=== PATIENT | female | born 1995 | race African-American/Black ===

== ENCOUNTER → 2024-05-09 14:59 | Outpatient (CLI) | payer OTHER, SELFPAY ==
[2024-05-09 16:54] LABS: Urine Chlamydia NOT DETECTED; Urine N gonorrhoeae NOT DETECTED
== END ==
PROVIDERS: Visit Provider Obstetrics & Gynecology
DX: Z34.91 Encounter for supervision of normal pregnancy, unspecified, first trimester (principal)
CPT/HCPCS: 87491; 87591

== ENCOUNTER 2024-05-21 08:53 | Emergency (ER) | payer OTHER, SELFPAY ==
[2024-05-21] VITALS (8 sets, daily range): BP systolic 131–139; BP diastolic 74; PULSE 86–98; RESP 16; TEMP 36.2; O2SAT 93–100; BMI 37.0
[2024-05-21] MEDS: SODIUM CHLORIDE 0.9% 1,000 ML 2000 ML IV (09:24)
[2024-05-21] MEDS: ONDANSETRON 4 MG/2 ML INJ IV (09:25)
--- NOTE | 2024-05-21 09:30 | ED_ITS ---
HPI - Nausea/Vomiting/Diarrhea General Chief complaint: Nausea/Vomiting/Diarrhea Stated complaint: dehydrated, vomiting, constipation Time Seen by Provider: 05/21/24 09:07 History of Present Illness HPI Narrative: Otherwise healthy 29-year-old currently 9 weeks presents with nausea and vomiting . Over the last 24 hours has barely been able to keep any foods down at all. Did not have such problems with her 1st . She does have ondansetron at home and did not find it particularly helpful. No fevers, cough, chills. No vaginal discharge or bleeding. She is noting some constipation but is taking a stool softener Related Data Home Medications Medication Instructions Recorded Confirmed vit no.95-ferrous 1 tab PO DAILY 05/06/24 05/09/24 fumarate 28 mg-folic acid 800 mcg tablet ( Multivitamins) pyridoxine (vitamin B6) 50 mg 25 mg PO TID 05/06/24 05/09/24 tablet Previous Rx's Medication Instructions Recorded ondansetron 4 mg disintegrating 4 mg PO Q6H PRN nausea and 05/08/24 tablet vomiting in #30 tabs metoclopramide HCl 10 mg tablet 10 mg PO Q6H PRN nausea and 05/21/24 vomiting #20 tabs Allergies Allergy/AdvReac Type Severity Reaction Status Date / Time apple Allergy Intermediate Hives Verified 05/09/24 11:34 Review of Systems Review of Systems Narrative: Pertinent positive and negative findings as per HPI Patient History Medical History (Updated 05/21/24 @ 09:44 by Gissel Ordaz MD) Concussion (~1997) Incompetent cervix Gestational hypertension Surgical History (Updated 05/06/24 @ 14:58 by Lien Platt RN) H/O tooth extraction Family History (Updated 05/06/24 @ 15:40 by Lien Platt RN) Father Hypertension Mother Hvjve-Snfzwbsdt-Jkdlu (WPW) syndrome SVT (supraventricular tachycardia) Twin delivered Grandmother Cervical cancer Grandmother Thyroid cancer Social History marital status: number of children: 1 household members: spouse and children lives independently: Yes caregiver/support person: Yes housing: house pets and animals: Yes (small dogs, gecko) education level: college (some college) occupational status: employed (active duty [employer]) current occupational exposures/hazards: No (not since becoming ) special carlo needs: No travel history: recent ([place]ine, [place], domestic) seatbelt use: always helmet use: Yes water heater temp set < 120 deg: Yes working smoke detector in home: Yes fire extinguisher in home: Yes carbon monox detector in home: Yes firearms in home: Yes firearms unloaded and locked: Yes do you feel safe at home: Yes Smoking Status: Never smoker second hand exposure: No alcohol intake: former (~3 drinks/week when not ) substance use type: does not use during the past year weight has: decreased > 10 lbs well-balanced diet: about half the time daily servings fruits/ve-4 caffeine: Yes (occasional cup coffee ) Type(s) of exercise: walking, aerobic and bicycling Smoking Status: Never smoker Substance Use Type: does not use Exam Initial Vital Signs Initial Vital Signs: Vital Signs Temperature 97.1 F L 05/21/24 09:05 Pulse Rate 97 H 05/21/24 09:05 Respiratory Rate 16 05/21/24 09:05 Blood Pressure 139/74 05/21/24 09:05 Pulse Oximetry 100 05/21/24 09:05 Oxygen Delivery Method Room Air 05/21/24 09:05 General: Alert appropriate in no acute distress Respiratory: Able to speak in full sentences, no obvious respiratory distress Skin: No obvious rashes, warm and dry Neurologic: Grossly intact no obvious asymmetries or abnormalities Psych: appropriate insight and affect, cooperative Course Orders Ordered: ED Orders 05/21/24 09:10 Complete Blood Count AUTO DIFF Stat Comprehensive Metabolic Panel Stat Free T4, Direct Thyroxine Stat TSH w/ Reflex to FT4 Stat Discontinued Medications Sodium Chloride (Normal Saline 0.9%) 1,000 mls @ 2,000 mls/hr IV BOLUS ONE Stop: 05/21/24 09:46 Last Admin: 05/21/24 09:24 Dose: 2,000 mls/hr Documented By: SHIRA Ondansetron HCl (Ondansetron 4 Mg/2 Ml Inj) 4 mg IV NOW ONE Stop: 05/21/24 09:18 Last Admin: 05/21/24 09:25 Dose: 4 mg Documented By: SHIRA Vital Signs Vital signs: Vital Signs - 8 hr 05/21/24 09:05 Temperature 97.1 F L Pulse Rate 97 H Respiratory Rate 16 Blood Pressure 139/74 Pulse Oximetry 100 Oxygen Delivery Method Room Air MDM - Nausea/Vomiting/Diarrhea Lab Data 05/21/24 09:10 05/21/24 09:10 Labs: Lab Results 05/21/24 Range/Units 09:10 WBC 4.8 (4.5-11.0) X10^3/uL RBC 4.33 (4.0-5.2) X10^6/uL Hgb 12.2 (12.0-16.0) g/dL Hct 36.4 (36-46) % MCV 84.0 (80-100) fL MCH 28.3 (26-34) PG MCHC 33.6 (30-36) % RDW 13.8 (11.6-14.8) % Plt Count 347 (150-400) X10^3/uL Neut % (Auto) 62.4 (50-75) % Lymph % (Auto) 19.9 L (25-40) % Isabela % (Auto) 13.3 (3-14) % Eos % (Auto) 3.9 (2-4) % Baso % (Auto) 0.5 (0-2) % Neut # (Auto) 3000 (3047-0836) /uL Lymph # (Auto) 1000 L (3205-8945) /uL Isabela # (Auto) 600 (0-900) /uL Eos # (Auto) 200 (0-450) /uL Baso # (Auto) 0 (0-100) /uL Sodium 135 L (137-145) mmol/L Potassium 3.9 (3.4-5.1) mmol/L Chloride 104 (98-107) mmol/L Carbon Dioxide 22 (22-32) mmol/L BUN 3 L (7-17) mg/dL Creatinine 0.54 (0.52-1.04) mg/dL Estimated GFR > 60 (>60) mL/min BUN/Creatinine Ratio 5.6 L (6-22) Glucose 94 (70-100) mg/dL Calcium 8.7 (8.4-10.2) mg/dL Total Bilirubin 0.4 (0.2-1.3) mg/dL AST 22 (14-36) IU/L ALT 17 (<35) IU/L Alkaline Phosphatase 69 (38-126) U/L Total Protein 7.2 (6.3-8.2) g/dL Albumin 4.0 (3.5-5.0) g/dL Globulin 3.2 (1.7-4.1) g/dL Albumin/Globulin Ratio 1.3 (1.0-2.8) TSH 0.04 L (0.47-4.68) uIU/mL MDM Narrative Medical decision making narrative: CC: Nausea early Complicating co-morbidities: Data collected from: patient Medical records reviewed: Patient has had an ultrasound with this to confirm intrauterine Braden placement Differential considered: Nausea and vomiting of , viral syndrome Exam documented above, pertinent findings include: No signs of severe dehydration. heart rate is appropriate Lab Test results independently reviewed as above. Pertinent findings: CBC is unremarkable Metabolic panel is reassuring TSH is suppressed at 0.04 Free T4 is appropriate at 1.33 Imaging studies independently reviewed: Bedside ultrasound confirms intrauterine fetus, heart rate 150-160. No obvious subchorionic hemorrhage Treatments: 2 L of fluid, IV Zofran Re-evaluations: Findings reviewed with the patient, she is tolerating juice. She is safe for discharge Discussion: 29-year-old woman with nausea and vomiting of early . She is given 2 L of fluids, is able to keep some liquids down. We will give her a prescription for metoclopramide to see if this is effective told her that she can combine it with ondansetron. She is well aware of recommendations for small volumes of liquids throughout the day including small volumes of food. She has a follow up with her OBGYN scheduled on May 23. There was no indication for additional workup or hospitalization at this time she is safe for discharge Discharge Plan Departure Patient Disposition: Home Clinical Impression: Vomiting of Instructions: DI for -- Discomforts and Remedies Activity Restrictions/Additional Instructions: Thank you for coming in today The bedside ultrasound we did in the emergency department shows a happy fetus grown nicely. You were given 2 L of fluid help with your dehydration. You are given ondansetron through your IV. Unfortunately, the symptoms you are experiencing are common with early . I am not seeing any signs of additional complications or infection I have given you a prescription for Reglan, this is a different type of nausea medicine that can be used in as well. You can combine Reglan and Zofran throughout the day. This prescription was electronically transmitted to [facility] in [place] Please make sure that you are trying to drink small amounts of fluids throughout the day rather than large volumes every couple of hours. Small amounts of food can also make it a bit easier to get more calories in without vomiting quite so much Constipation at this stage is very common both because you are not eating, you do not feel well and your high progesterone levels. It is okay to use dose or 2 of milk of magnesia and do make sure that you are continuing your stool softener Please keep your appointment with your OBGYN on Sunday. If you find Prescriptions: New metoclopramide HCl 10 mg tablet 10 mg PO Q6H PRN (Reason: nausea and vomiting) Qty: 20 0RF No Action ondansetron 4 mg tablet,disintegrating 4 mg PO Q6H PRN (Reason: nausea and vomiting in ) Qty: 30 1RF pyridoxine (vitamin B6) 50 mg tablet 25 mg PO TID PNV cmb#95-ferrous fumarate-FA [ Multivitamins] 28 mg iron- 800 mcg tablet 1 tab PO DAILY Referrals: Rik Penny [Primary Care Provider] - Stand Alone Forms: Patient Portal/API
[2024-05-21 09:31] LABS: Add Manual Diff / Slide Review NO; Basophils Absolute Auto 0 /uL (0-100); Basophils Percent Auto 0.5 % (0-2); Eosinophils Absolute Auto 200 /uL (0-450); Eosinophils Percent Auto 3.9 % (2-4); Hematocrit 36.4 % (36-46); Hemoglobin 12.2 g/dL (12.0-16.0); Lymphocytes Absolute Auto 1000 /uL (1100-4500); Lymphocytes Percent Auto 19.9 % (25-40); Mean Corpuscular HGB Conc 33.6 % (30-36); Mean Corpuscular Hemoglobin 28.3 PG (26-34); Monocytes Absolute Auto 600 /uL (0-900); Monocytes Percent Auto 13.3 % (3-14); Neutrophils Absolute Auto 3000 /uL (1500-7000); Neutrophils Percent Auto 62.4 % (50-75); Platelet Count 347 X10^3/uL (150-400); Red Blood Cell Count 4.33 X10^6/uL (4.0-5.2); Red Cell Distribution Width 13.8 % (11.6-14.8); White Blood Cell Count 4.8 X10^3/uL (4.5-11.0)
[2024-05-21 09:38] LABS: Alanine Aminotransferase 17 IU/L (<35); Albumin Globulin Ratio 1.3 (1.0-2.8); Alkaline Phosphatase 69 U/L (38-126); Aspartate Aminotransferase 22 IU/L (14-36); BUN Creatinine Ratio 5.6 (6-22); Bilirubin Total 0.4 mg/dL (0.2-1.3); Blood Urea Nitrogen 3 mg/dL (7-17); Calcium 8.7 mg/dL (8.4-10.2); Carbon Dioxide 22 mmol/L (22-32); Chloride 104 mmol/L (98-107); Estimated Glomerular Filt Rate > 60 mL/min (>60); Globulin 3.2 g/dL (1.7-4.1); Glucose 94 mg/dL (70-100); HEMOLYSIS < 15 (0-50); Potassium 3.9 mmol/L (3.4-5.1); Sodium 135 mmol/L (137-145); Total Protein 7.2 g/dL (6.3-8.2)
[2024-05-21 10:20] LABS: TSH w/ Reflex to FT4 0.04 uIU/mL (0.47-4.68)
[2024-05-21] MEDS: SODIUM CHLORIDE 0.9% 1,000 ML 1000 ML IV (10:32)
[2024-05-21 10:45] LABS: Free T4, Direct Thyroxine 1.33 ng/dL (0.78-2.19)
== END 2024-05-21 11:54 | disposition home or self-care (01) ==
PROVIDERS: Emergency Provider Emergency Medicine
DX: O21.9 Vomiting of pregnancy, unspecified (principal)
CPT/HCPCS: 80053; 84439; 84443; 85025; 96361; 96374; 99283; 99284; J2405

== ENCOUNTER → 2024-06-06 14:08 | Outpatient (CLI) | payer OTHER, SELFPAY ==
[2024-06-06 15:38] LABS: Add Manual Diff / Slide Review NO; Basophils Absolute Auto 0 /uL (0-100); Basophils Percent Auto 0.3 % (0-2); Eosinophils Absolute Auto 200 /uL (0-450); Eosinophils Percent Auto 2.7 % (2-4); Hematocrit 34.2 % (36-46); Hemoglobin 11.4 g/dL (12.0-16.0); Lymphocytes Absolute Auto 2500 /uL (1100-4500); Lymphocytes Percent Auto 27.2 % (25-40); Mean Corpuscular HGB Conc 33.3 % (30-36); Mean Corpuscular Volume 84.1 fL (80-100); Monocytes Absolute Auto 900 /uL (0-900); Monocytes Percent Auto 10.3 % (3-14); Neutrophils Absolute Auto 5400 /uL (1500-7000); Neutrophils Percent Auto 59.5 % (50-75); Platelet Count 358 X10^3/uL (150-400); Red Blood Cell Count 4.07 X10^6/uL (4.0-5.2); Red Cell Distribution Width 13.6 % (11.6-14.8); White Blood Cell Count 9.1 X10^3/uL (4.5-11.0)
[2024-06-06 17:08] LABS: Alanine Aminotransferase 13 IU/L (<35); Aspartate Aminotransferase 18 IU/L (14-36); BUN Creatinine Ratio 16.7 (6-22); Blood Urea Nitrogen 9 mg/dL (7-17); Estimated Glomerular Filt Rate > 60 mL/min (>60); Uric Acid 2.3 mg/dL (2.5-6.2)
[2024-06-06 18:29] LABS: Hepatitis B Surface Antigen NEGATIVE s/c (NEGATIVE); Rubella Antibody IgG 25.2 IU/mL (>15)
[2024-06-06 18:30] LABS: HIV 1 & 2 Ab/Ag 4th Gen Combo NEGATIVE (NEGATIVE); Hep C Virus Ab w/Reflex Quant NEGATIVE s/c (NEGATIVE)
[2024-06-08 11:08] LABS: Varicella IgG Antibody 408 index (Immune >165)
== END ==
PROVIDERS: Referring Provider Obstetrics & Gynecology; Visit Provider Obstetrics & Gynecology
DX: O09.299 Supervision of pregnancy with other poor reproductive or obstetric history, unspecified trimester (principal)
CPT/HCPCS: 36415; 80055; 82565; 84450; 84460; 84520; 84550; 86787; 86803; 86850; 86900; 86901; 87389

== ENCOUNTER → 2024-06-10 10:00 | Outpatient (CLI) | payer OTHER, SELFPAY ==
[2024-06-10 11:15] LABS: Natera Collection Specimen Collected
== END ==
LOC: LAB 10:01
PROVIDERS: Referring Provider Obstetrics & Gynecology; Visit Provider Obstetrics & Gynecology
DX: O09.299 Supervision of pregnancy with other poor reproductive or obstetric history, unspecified trimester (principal); Z3A.11 11 weeks gestation of pregnancy
CPT/HCPCS: 36415; 87086

== ENCOUNTER 2024-06-16 06:39 | Day surgery (SDC) | payer OTHER, SELFPAY ==
[2024-06-12 12:21] VITALS: BMI 36.5
[2024-06-16] VITALS (7 sets, daily range): BP systolic 82–129; BP diastolic 50–75; PULSE 66–110; RESP 10–18; TEMP 36.2–36.6; O2SAT 98–100; BMI 36.5
--- NOTE | 2024-06-16 07:24 | SUR.OPER ---
Lithotomy on padded OR bed, head on pillow, arms secured on padded arm boards at <90 degrees abduction. Legs secured in padded yellow fins stirrups.
[2024-06-16] MEDS: LACTATED RINGERS 1,000 ML 21 ML IV (07:27)
[2024-06-16] MEDS: ACETAMINOPHEN 325 MG TABLET 650 MG PO (07:38)
--- NOTE | 2024-06-16 07:47 | PM.GYNHP.1 ---
History of Present Illness History of Present Illness Reason for admission: other (Incompetent cervix) Narrative: Niharika Cooper is a 29 year old female at 13 weeks gestation who presents for a cervical cerclage due to incompetent cervix. [facility] Medical History (Updated 06/05/24 @ 00:00 by ) Allergies Shoulder pain (~2017) Chlamydia (~2015) Eczema Concussion (~1997) Incompetent cervix Gestational hypertension Surgical History (Updated 05/24/24 @ 20:34 by Jamilah Johnson) Anesthesia History of cervical cerclage (~08/2021) H/O tooth extraction (~2012) Family History (Updated 05/24/24 @ 20:38 by Jamilah Johnson) Father Hypertension Mother Datju-Ejfulxddy-Azwfk (WPW) syndrome SVT (supraventricular tachycardia) Twin delivered Grandmother Cervical cancer Grandmother Thyroid cancer Grandfather AIDS Grandfather Multiple sclerosis Social History marital status: number of children: 1 household members: spouse and children lives independently: Yes caregiver/support person: Yes housing: house pets and animals: Yes (small dogs, gecko) education level: college (some college) occupational status: employed (active duty [employer]) current occupational exposures/hazards: No (not since becoming ) special carlo needs: No travel history: recent ([place], [place], domestic) seatbelt use: always helmet use: Yes water heater temp set < 120 deg: Yes working smoke detector in home: Yes fire extinguisher in home: Yes carbon monox detector in home: Yes firearms in home: Yes firearms unloaded and locked: Yes do you feel safe at home: Yes Smoking Status: Never smoker second hand exposure: No alcohol intake: former substance use type: does not use during the past year weight has: decreased > 10 lbs well-balanced diet: about half the time daily servings fruits/ve-4 caffeine: Yes (occasional cup coffee ) Type(s) of exercise: walking, aerobic and bicycling Meds Home Medications and Allergies Home Medications Medication Instructions Recorded Confirmed Type vit no.95-ferrous 1 tab PO DAILY 05/06/24 06/16/24 History fumarate 28 mg-folic acid 800 mcg tablet ( Multivitamins) metoclopramide HCl 10 mg tablet 10 mg PO Q6H PRN nausea and 05/21/24 06/16/24 Rx vomiting #20 tabs ondansetron 4 mg disintegrating 4 mg PO Q6H PRN nausea and 05/27/24 06/16/24 Rx tablet vomiting in #30 tabs Allergies Allergy/AdvReac Type Severity Reaction Status Date / Time apple Allergy Intermediate Hives Verified 06/04/24 11:28 Exam Vital Signs (past 8 hours): - 06/16/24 07:08 Temperature 97.2 F L Pulse Rate 96 H Respiratory Rate 17 Blood Pressure 120/73 Pulse Oximetry 100 Oxygen Delivery Method Room Air Oxygen Delivery Method Room Air Narrative Exam Narrative: HEENT: No thyromegaly, no anterior cervical or supraclavicular lymphadenopathy. Lungs:Clear to auscultation bilaterally, no wheezes. Cardiovascular: Regular rate and rhythm, no murmurs, rubs, or gallops. Abdomen: No scars. No hepatosplenomegaly. No masses palpable. External genitalia: Normal Vagina: Normal Cervix: Normal Bimanual exam: 13 Week size gravid uterus. Mobile. Ext: No edema Assessment & Plan Assessment & Plan narrative: Assessment: 29-year-old 2 para 1 at 13 weeks gestation with an incompetent cervix Plan: Dawson cervical cerclage The risks, benefits, and alternatives to the procedure were explained to the patient. The risks including bleeding, infection, and rupture of membranes. She understands these risks and agrees to proceed. A full par Q was held and consent form was signed. Time-Based Coding :: [TOTAL MINUTES] spent with patient and on the chart (including review of chart, obtaining history, exam, reviewing outside data, placing orders, documenting exam and treatment plan, and counseling patient) on [DATE].
--- NOTE | 2024-06-16 07:49 | PM.PREOP ---
Pre-operative Note Interval Note History & Physical reviewed/Exam performed by Physician: Yes Changes to H&P: No H&P completed within 30 days and has changed as indicated here:: 06/16/24
[2024-06-16] MEDS: CEFAZOLIN 2 GM/100 ML PREMIX 100 ML IV (08:04)
[2024-06-16] MEDS: IBUPROFEN 400 MG TABLET 800 MG PO (08:25)
--- NOTE | 2024-06-16 08:45 | PM.GYNOP.1 ---
Operative Date/Time/Diagnoses Date of procedure: 06/16/24 Time of procedure: 08:45 Pre-op diagnosis: Incompetent cervix Post-op diagnosis: same Procedure & Clinicians Procedure: Procedures Operation Date: 06/16/24 07:45 Actual Procedure Side Surgeon sugey Pérezge Thalia Rebolledo MD Indications: 29-year-old 2 para 1 at 13 weeks gestation with an incompetent cervix. Patient previously had a salvage cerclage done with her first . She did carry to 36 weeks' gestation. She presents today for a prophylactic Dawson cervical cerclage. Surgeon: Thalia Rebolledo Anesthesia Type: MAC +/- Operative Notes Findings: 4 cm long cervix Internal os closed External os fingertip open Closure Type: not applicable Specimen(s): none Applied: catheter (In/out with red rubber catheter) Estimated blood loss (mL): 5 Blood products transfused: none Procedure in detail: After informed consent was obtained, the patient was taken to the operating room where she was placed in the dorsal supine position. After adequate IV sedation, the patient was placed in the dorsal lithotomy position, and prepped and draped in the usual sterile fashion. A time-out was performed. A weighted speculum was placed into the vagina. The patient was placed in deep Trendelenburg. Ring forceps were placed on the anterior and posterior lips of the cervix. The cervix was palpated and was 4 cm long. At the 4 cm prabhakar the Mersilene blunt needle was placed at the 12 o'clock position and out at 10. In at 8 and out at 6. In 5 in out at 4. In at 2 and out at 12. The Mersilene was tightened down. Six knots were tied and then the Mersilene was trimmed. The ring forceps were removed from the cervix. The bivalve speculum was removed from the vagina. 800 mg of ibuprofen were placed rectally. Sponge, lap, and instrument counts were correct x2. The patient tolerated the procedure well, and was taken to PACU in stable condition. Complications: none Post-operative Condition: stable Disposition: PACU Plan for aftercare: Home after recovery
[2024-06-16] MEDS: HYDROMORPHONE 1 MG INJ IV ×2 (08:47→08:53)
[2024-06-16] MEDS: OXYCODONE IR 5 MG TABLET PO ×2 (08:49→09:29)
[2024-06-16] MEDS: MORPHINE 10 MG/ML INJ IV (09:01)
== END 2024-06-16 09:51 | disposition home or self-care (01) ==
PROVIDERS: Referring Provider Obstetrics & Gynecology; Visit Provider Obstetrics & Gynecology
PROC: 0UVC7ZZ Restriction of Cervix, Via Natural or Artificial Opening (ICD-10-PCS; CPT 57700; principal; 2024-06-16 07:45)
DX: N88.3 Incompetence of cervix uteri (principal); Z3A.13 13 weeks gestation of pregnancy
CPT/HCPCS: 59320; J0330; J0690; J1170; J2270; J2405; J2704

== ENCOUNTER 2024-07-20 21:30 | Emergency (ER) | payer OTHER, SELFPAY ==
[2024-07-20 21:33] VITALS: BP 143/64; PULSE 92; RESP 16; TEMP 36.4; O2SAT 100; BMI 51.2
--- NOTE | 2024-07-20 22:01 | DI.US.S_ITS ---
PROCEDURE: US OB LIMITED INDICATIONS: 18 weeks gest, vag bleeding OUTSIDE/PRIOR DATING DATA: Last menstrual period (LMP): March 17, 2024. LMP-based estimated date of delivery (SILVESTRE): December 22, 2024. First dating scan (date and location): May 09, 2024. Estimated date of delivery (SILVESTRE) from first dating scan: December 22, 2024. TECHNIQUE: Real-time scanning was performed of the fetus, with image documentation and biometric measurements. Endovaginal scanning: Performed for evaluation of the cervix COMPARISON: None. FINDINGS: General: A single living intrauterine gestation is present. Presentation: Vertex. Placenta: Placental position is anterior , without previa. Amniotic fluid index: 14.2 cm, normal range is 5-24 cm. Single deepest vertical pocket is 4.7 cm. heart rate: 133 beats per minute. Maternal cervical canal: 4.7 cm long. Normal lower limit is 2.5 cm. A cerclage wire is visualized. biometrics: Biparietal diameter: 4.2 cm, 18 weeks and 5 days Head circumference: 14.9 cm, 18 weeks and 0 days Abdominal circumference: 12.1 cm, 17 weeks and 5 days Femur length: 2.6 cm, 17 weeks and 6 days Clinically estimated gestational age: 17 weeks and 6 days Composite gestational age from present scan: 18 weeks and 1 day Estimated weight and percentile: 212 g, 43rd percentile for gestational age Other: Not applicable. IMPRESSION: Single living intrauterine gestation with estimated sonographic gestational age of approximately 18 weeks and 1 day which correlates with estimated gestational age by last menstrual period. Cervical length measures 4.7 cm. Placental edge to the internal cervical os measures approximately 5.3 cm. Cerclage visualized in the cervix. Left anterior uterine fibroid measuring 6.5 x 4.4 x 4.6 cm. We strive to produce accurate, complete, and clear reports of imaging services. To assist us in improving patient care, this report was composed using standard report templates and voice recognition software. Therefore, it may contain abnormal punctuation, insertions and/or omissions. Occasional wrong-word or sound-alike substitutions may occur. Though we review the report and make efforts to correct it, we do recommend that the report be read carefully in proper context to recognize any text inaccuracies. Dictated by: Van Cuba M.D. on 07/21/2024 at 0:09 Approved by: Van Cuba M.D. on 07/21/2024 at 0:15
--- NOTE | 2024-07-20 22:36 | ED.GENADULT ---
HPI - General Adult General Chief complaint: Vaginal Bleeding Stated complaint: spotting blood 17 1/2 weeks preg Time Seen by Provider: 07/20/24 22:00 Source: patient Mode of arrival: Ambulatory History of Present Illness HPI narrative: 29-year-old female current she reports 18 weeks' gestation, , prior with cervical incompetence, this had cerclage placed by Dr. Rebolledo at 13 weeks' gestation, now noticed slight blood on wiping vaginal, no rectal bleeding or stooling. No cramping, no leaking of fluid. No fevers or chills. No dysuria or frequency of urination. No trauma. Reports she has been compliant with recommended pelvic rest, no intercourse or other intravaginal trauma. She denies use of blood thinner medications. No vaginal discharge. Related Data Home Medications Medication Instructions Recorded Confirmed vit no.95-ferrous 1 tab PO DAILY 05/06/24 07/11/24 fumarate 28 mg-folic acid 800 mcg tablet ( Multivitamins) Previous Rx's Medication Instructions Recorded metoclopramide HCl 10 mg tablet 10 mg PO Q6H PRN nausea and 05/21/24 vomiting #20 tabs ondansetron 4 mg disintegrating 4 mg PO Q6H PRN nausea and 06/19/24 tablet vomiting in #30 tabs Allergies Allergy/AdvReac Type Severity Reaction Status Date / Time apple Allergy Intermediate Hives Verified 07/11/24 13:51 Review of Systems Review of Systems Narrative: see HPI Patient History Medical History (Updated 07/21/24 @ 00:33 by Vickey Kinney MD) Allergies Shoulder pain (~2017) Chlamydia (~2015) Eczema Concussion (~1997) Incompetent cervix Gestational hypertension Surgical History (Updated 07/21/24 @ 00:33 by Vickey Kinney MD) Anesthesia History of cervical cerclage (~08/2021) H/O tooth extraction (~2012) Family History (Updated 05/24/24 @ 20:38 by Jamilah Johnson) Father Hypertension Mother Ruydy-Hmhbxuflf-Unolo (WPW) syndrome SVT (supraventricular tachycardia) Twin delivered Grandmother Cervical cancer Grandmother Thyroid cancer Grandfather AIDS Grandfather Multiple sclerosis Social History marital status: number of children: 1 household members: spouse and children lives independently: Yes caregiver/support person: Yes housing: house pets and animals: Yes (small dogs, gecko) education level: college (some college) occupational status: employed (active duty [employer]) current occupational exposures/hazards: No (not since becoming ) special carlo needs: No travel history: recent ([place], [place], domestic) seatbelt use: always helmet use: Yes water heater temp set < 120 deg: Yes working smoke detector in home: Yes fire extinguisher in home: Yes carbon monox detector in home: Yes firearms in home: Yes firearms unloaded and locked: Yes do you feel safe at home: Yes Smoking Status: Never smoker second hand exposure: No alcohol intake: former substance use type: does not use during the past year weight has: decreased > 10 lbs well-balanced diet: about half the time daily servings fruits/ve-4 caffeine: Yes (occasional cup coffee ) Type(s) of exercise: walking, aerobic and bicycling Smoking Status: Never smoker Substance Use Type: does not use Exam Narrative Exam Narrative: GENERAL: Well-developed patient, in mild distress. HEAD: Atraumatic. Normocephalic. EYES: Pupils equal round and reactive. Extraocular motions intact. No scleral icterus. No injection or drainage. ENT: Nose without bleeding, purulent drainage. Throat without erythema, tonsillar hypertrophy or exudate. Airway patent. NECK: Trachea midline. Non tender CARDIOVASCULAR: Regular rate and rhythm without murmurs, gallops, or rubs. RESPIRATORY: Clear to auscultation. Breath sounds equal bilaterally. No wheezes, rales, or rhonchi. GASTROINTESTINAL: Abdomen soft, non-tender, nondistended. Fundus palpable 2 fingers below the umbilicus, consistent with reported gestational age 18 weeks. No tenderness ventral abdomen. EXTREMITIES: No edema or joint tenderness. BACK: Nontender without deformity or crepitance. No flank tenderness. NEURO: AOx3. Motor functions grossly nonfocal SKIN: No rash or erythema of visible areas Initial Vital Signs Initial Vital Signs: Vital Signs Temperature 97.5 F L 07/20/24 21:33 Pulse Rate 92 H 07/20/24 21:33 Respiratory Rate 16 07/20/24 21:33 Blood Pressure 143/64 H 07/20/24 21:33 Pulse Oximetry 100 07/20/24 21:33 Oxygen Delivery Method Room Air 07/20/24 21:33 Course Orders Ordered: ED Orders 07/20/24 22:01 US OB limited Stat 07/20/24 22:15 Hemoglobin and Hematocrit Stat Test [HCG Quantitative /Beta subunit] Stat Vital Signs Vital signs: Vital Signs - 8 hr 07/20/24 21:33 07/21/24 00:40 Temperature 97.5 F L Pulse Rate 92 H 74 Respiratory Rate 16 18 Blood Pressure 143/64 H 127/67 Pulse Oximetry 100 99 Oxygen Delivery Method Room Air Room Air Medical Decision Making Lab Data Lab results reviewed: Yes I reviewed the patient's lab results. Lab results narrative: Hemoglobin 12.7, urine dip negative. Blood type O positive noted. Serum hCG 98495. 07/20/24 22:15 Labs: Lab Results 07/20/24 Range/Units 22:15 Hgb 12.7 (12.0-16.0) g/dL Hct 38.0 (36-46) % HCG, Quant 74525 mIU/mL Urine Dip Bedside Urine Glucose Negative Bedside Urine Bilirubin - Negative Bedside Urine Ketone - Negative Urine Specific [place] 1.015 Bedside Urine Occult Blood - Negative Bedside Urine pH 6 Bedside Urine Protein - Negative Bedside Urine Urobilinogen - Negative Bedside Urine Nitrite - Negative Bedside Urine Leukocytes + 70 Esterase Point of care testing: Urine Dip Bedside Urine Glucose Negative Bedside Urine Bilirubin - Negative Bedside Urine Ketone - Negative Urine Specific [place] 1.015 Bedside Urine Occult Blood - Negative Bedside Urine pH 6 Bedside Urine Protein - Negative Bedside Urine Urobilinogen - Negative Bedside Urine Nitrite - Negative Bedside Urine Leukocytes + 70 Esterase Imaging Data Pelvic obstetric 2nd trimester ultrasound: Radiologist's Impression: [place] [address] Ultrasound Report Signed Patient: Niharika Cooper MR#: [id number] : 1995 Acct:[id number] Age/Sex: 29 / F Date of Service: 07/20/24 Loc: ED Accession Number: [id number] Procedure: US OB limited Ordering Provider: Vickey Kinney MD PROCEDURE: US OB LIMITED INDICATIONS: 18 weeks gest, vag bleeding OUTSIDE/PRIOR DATING DATA: Last menstrual period (LMP): March 17, 2024. LMP-based estimated date of delivery (SILVESTRE): December 22, 2024. First dating scan (date and location): May 09, 2024. Estimated date of delivery (SILVESTRE) from first dating scan: December 22, 2024. TECHNIQUE: Real-time scanning was performed of the fetus, with image documentation and biometric measurements. Endovaginal scanning: Performed for evaluation of the cervix COMPARISON: None. FINDINGS: General: A single living intrauterine gestation is present. Presentation: Vertex. Placenta: Placental position is anterior , without previa. Amniotic fluid index: 14.2 cm, normal range is 5-24 cm. Single deepest vertical pocket is 4.7 cm. heart rate: 133 beats per minute. Maternal cervical canal: 4.7 cm long. Normal lower limit is 2.5 cm. A cerclage wire is visualized. biometrics: Biparietal diameter: 4.2 cm, 18 weeks and 5 days Head circumference: 14.9 cm, 18 weeks and 0 days Abdominal circumference: 12.1 cm, 17 weeks and 5 days Femur length: 2.6 cm, 17 weeks and 6 days Clinically estimated gestational age: 17 weeks and 6 days Composite gestational age from present scan: 18 weeks and 1 day Estimated weight and percentile: 212 g, 43rd percentile for gestational age Other: Not applicable. IMPRESSION: Single living intrauterine gestation with estimated sonographic gestational age of approximately 18 weeks and 1 day which correlates with estimated gestational age by last menstrual period. Cervical length measures 4.7 cm. Placental edge to the internal cervical os measures approximately 5.3 cm. Cerclage visualized in the cervix. Left anterior uterine fibroid measuring 6.5 x 4.4 x 4.6 cm. We strive to produce accurate, complete, and clear reports of imaging services. To assist us in improving patient care, this report was composed using standard report templates and voice recognition software. Therefore, it may contain abnormal punctuation, insertions and/or omissions. Occasional wrong-word or sound-alike substitutions may occur. Though we review the report and make efforts to correct it, we do recommend that the report be read carefully in proper context to recognize any text inaccuracies. Dictated by: Van Cuba M.D. on 07/21/2024 at 0:09 Approved by: Van Cuba M.D. on 07/21/2024 at 0:15 MDM Narrative Medical decision making narrative: 29-year-old female at 18 weeks gestation with history of cervical incompetence, status post cerclage surgery 13 weeks this gestation by her current OB provider Dr. Rebolledo, now with slight spotting x2 episodes this afternoon, no abdominal cramping, no pelvic pain, no vaginal bleeding or leaking of fluid, afebrile, sirs screen negative, no tenderness abdomen, fundus below umbilicus consistent with reported EGA 18 weeks. Screening labs hemoglobin unremarkable, urine dip negative. [place] [address] noted. Ultrasound pelvis ordered. Prelim sono tech report, ultrasound reported showing grace intrauterine live , heart rate 133, 18 weeks 1 day gestational size, ERLINDA 14, left uterine fibroid 6.5 cm noted, no evidence for bleeding obvious. Cervix 4.7 cm closed, with cerclage present. No cervical inflammatory changes or cul-de-sac fluid reported. No mention of previa or abruptio placenta. Reassuring preliminary Pelvic US results shared with patient, await radiologist over read report. Ultrasound Radiology report shows similar findings, see imported note. Printed copy of radiology report given to patient. Follow up with obstetrics provider as planned, but consider calling their office tomorrow to see if they would like an earlier consult scheduled. No indication for antibiotics at this time. We discussed pelvic examination, declined. Home with family, stable return precautions discussed Discharge Plan Departure Patient Disposition: Home Clinical Impression: Vaginal spotting, , Uterine fibroid, History of cervical cerclage Activity Restrictions/Additional Instructions: Small amount vaginal spotting noted on toilet paper, current 18 weeks gestation. History of incompetent cervix status post cervical cerclage procedure at 13 weeks noted this . No fever on triage, abdomen exam benign. We discussed pelvic examination, declined for now. Ultrasound of the pelvis showed single live fetus 18 weeks' gestation, presence of uterine fibroid noted which was not obviously bleeding. No active hemorrhage or inflammation changes. No adnexal masses. Cerclage was noted with normal cervical length, no obvious inflammatory change or fluid around the cervix in the vaginal vault. Hemodynamically stable. Follow up as an outpatient for now, continue pelvic rest as planned with cerclage in place. Call the office of your obstetrics provider tomorrow morning to see if they would like an earlier follow up appointment than scheduled. Return earlier to this/nearest emergency department for any change worsening symptoms or any concerns prior Prescriptions: No Action ondansetron 4 mg tablet,disintegrating 4 mg PO Q6H PRN (Reason: nausea and vomiting in ) Qty: 30 1RF PNV cmb#95-ferrous fumarate-FA [ Multivitamins] 28 mg iron- 800 mcg tablet 1 tab PO DAILY metoclopramide HCl 10 mg tablet 10 mg PO Q6H PRN (Reason: nausea and vomiting) Qty: 20 0RF Referrals: Thalia Rebolledo MD [Physician] - Provider,Jefferson DELGADILLO [Primary Care Provider] - Stand Alone Forms: Patient Portal/API, Work Release Note
[2024-07-20 22:37] LABS: Hemoglobin 12.7 g/dL (12.0-16.0)
[2024-07-20 23:27] LABS: HCG Quantitative /Beta subunit 46239 mIU/mL
[2024-07-21 00:40] VITALS: BP 127/67; PULSE 74; RESP 18; O2SAT 99
== END 2024-07-21 00:40 | disposition home or self-care (01) ==
PROVIDERS: Emergency Provider Emergency Medicine
DX: O20.9 Hemorrhage in early pregnancy, unspecified (principal); D25.9 Leiomyoma of uterus, unspecified; Z3A.18 18 weeks gestation of pregnancy
CPT/HCPCS: 36415; 76815; 76817; 81003; 84702; 85014; 85018; 99283; 99284

== ENCOUNTER → 2024-07-25 14:27 | Outpatient (CLI) | payer OTHER, SELFPAY ==
[2024-07-29 19:09] LABS: AFP Value 39.7 ng/mL (.); Gest Age on Col Date 18.6 weeks (.); Gestational Age Ultrasound (.); Insulin Dep Diabetes No (.); OSBR Risk 1IN 10000 (.); Results Report (.); Test Results *Screen Negative* (.)
== END ==
PROVIDERS: Referring Provider Specialist; Visit Provider Specialist
DX: O09.291 Supervision of pregnancy with other poor reproductive or obstetric history, first trimester (principal); Z3A.18 18 weeks gestation of pregnancy; O34.32 Maternal care for cervical incompetence, second trimester
CPT/HCPCS: 36415; 82105

== ENCOUNTER → 2024-08-08 07:30 | Outpatient (CLI) | payer OTHER, SELFPAY ==
--- NOTE | 2024-08-08 07:31 | DI.US.S_ITS ---
PROCEDURE: US OB >= 14 WEEKS FETUS INDICATIONS: 20 week anatomy scan OUTSIDE/PRIOR DATING DATA: Last menstrual period (LMP): 03/17/2024 LMP-based estimated date of delivery (SILVESTRE): 12/22/2024 First dating scan (date and location): A 1624 Estimated date of delivery (SILVESTRE) from first dating scan: 12/22/2024 The calculations are made using the working SILVESTRE of 12/22/2024. TECHNIQUE: Real-time scanning was performed of the fetus, with image documentation and biometric measurements. Endovaginal scanning: Not performed COMPARISON: [facility], , OB >= 14 WEEKS FETUS, 07/25/2024, 14:19. FINDINGS: General: A single living intrauterine gestation is present. Presentation: Vertex Placenta: Placental position is anterior, without previa. Amniotic fluid index: 19.0 cm, normal range is 5-24 cm. Single deepest vertical pocket is 6.9cm. heart rate: 133 beats per minute. Maternal cervical canal: Closed and measures 4 cm long. Normal lower limit is 2.5 cm. biometrics: Biparietal diameter: 4.8 cm, 20 weeks, 4 days. Head circumference: 17.9 cm, 20 weeks, 3 days. Abdominal circumference: 15.2 cm, 20 weeks, 3 days. Femur length: 3.5 cm, 20 weeks, 6 days. Clinically estimated gestational age: 20 weeks, 4 days Composite gestational age from present scan: 20 weeks, 4 days Estimated weight and percentile: 364 g, 46% Anatomic survey: Neuro: Ventricles are non-dilated at less than 10 mm. Cisterna magna is normal at 3-11 mm. Cerebellum is normal in size and morphology. Nuchal skin fold: Normal at less than 6 mm between 14-21 weeks gestational age. Face: Nose and lips, facial profile are normal. Spine: No evidence for spina bifida. Heart: 4-chambered heart is present, with normal ventricular outflow tracts. Diaphragm: Diaphragm is intact. Stomach: Left-sided stomach is present. Kidneys: No hydronephrosis. Normal is less than 5 mm in 2nd trimester, less than 7 mm in 3rd trimester. Cord: 3-vessel cord has orthotopic insertion. Bladder: Normal in size. Extremities: All 4 extremities identified. Cerclage is in place. IMPRESSION: 1. Single live intrauterine gestation with fetus in vertex presentation. heart rate is 133 beats per minute. Normal ERLINDA at 19.0 cm. Cerclage is in place. Cervix is closed and measures 4 cm in length. 2. Normal growth with estimated weight of 46%. 3. Normal anatomic survey. We strive to produce accurate, complete, and clear reports of imaging services. To assist us in improving patient care, this report was composed using standard report templates and voice recognition software. Therefore, it may contain abnormal punctuation, insertions and/or omissions. Occasional wrong-word or sound-alike substitutions may occur. Though we review the report and make efforts to correct it, we do recommend that the report be read carefully in proper context to recognize any text inaccuracies. Dictated by: Luther Ragland M.D. on 08/08/2024 at 16:47 Approved by: Luther Ragland M.D. on 08/08/2024 at 17:01
== END ==
LOC: US 07:31
PROVIDERS: Referring Provider Specialist; Visit Provider Specialist
DX: Z34.82 Encounter for supervision of other normal pregnancy, second trimester (principal); Z3A.20 20 weeks gestation of pregnancy
CPT/HCPCS: 76811

== ENCOUNTER → 2024-09-03 08:41 | Outpatient (CLI) | payer OTHER, SELFPAY ==
[2024-09-03 10:59] LABS: Hematocrit 35.3 % (36-46); Hemoglobin 11.8 g/dL (12.0-16.0)
[2024-09-03 11:22] LABS: GTT (PREG) 1 Hour PP 50gm Dose 105 mg/dL (76-139)
== END ==
PROVIDERS: Referring Provider Obstetrics & Gynecology; Visit Provider Obstetrics & Gynecology
DX: Z34.82 Encounter for supervision of other normal pregnancy, second trimester (principal); Z3A.26 26 weeks gestation of pregnancy
CPT/HCPCS: 36415; 82950; 85014; 85018

== ENCOUNTER 2024-09-11 07:59 | Outpatient (CLI) | payer OTHER, SELFPAY | END 2024-09-11 08:56 | disposition home or self-care (01) | LOC: OB 09-16 08:30 | PROVIDERS: Referring Provider Obstetrics & Gynecology; Visit Provider Obstetrics & Gynecology | DX: O36.8120 Decreased fetal movements, second trimester, not applicable or unspecified (principal); O99.212 Obesity complicating pregnancy, second trimester; E66.9 Obesity, unspecified; O13.2 Gestational [pregnancy-induced] hypertension without significant proteinuria, second trimester; Z3A.25 25 weeks gestation of pregnancy | CPT/HCPCS: 59025; G0378; G0379 ==

== ENCOUNTER → 2024-10-17 14:32 | Outpatient (CLI) | payer OTHER, SELFPAY ==
[2024-10-17 15:22] LABS: Add Manual Diff / Slide Review NO; Basophils Absolute Auto 0 /uL (0-100); Basophils Percent Auto 0.2 % (0-2); Eosinophils Absolute Auto 300 /uL (0-450); Eosinophils Percent Auto 2.7 % (2-4); Hematocrit 36.5 % (36-46); Hemoglobin 12.1 g/dL (12.0-16.0); Lymphocytes Absolute Auto 2700 /uL (1100-4500); Lymphocytes Percent Auto 23.7 % (25-40); Mean Corpuscular HGB Conc 33.1 % (30-36); Mean Corpuscular Hemoglobin 27.7 PG (26-34); Mean Corpuscular Volume 83.9 fL (80-100); Monocytes Absolute Auto 1100 /uL (0-900); Monocytes Percent Auto 9.5 % (3-14); Neutrophils Absolute Auto 7100 /uL (1500-7000); Neutrophils Percent Auto 63.9 % (50-75); Platelet Count 363 X10^3/uL (150-400); Red Blood Cell Count 4.35 X10^6/uL (4.0-5.2); Red Cell Distribution Width 13.2 % (11.6-14.8); White Blood Cell Count 11.2 X10^3/uL (4.5-11.0)
[2024-10-17 16:00] LABS: Alanine Aminotransferase 15 IU/L (<35); Aspartate Aminotransferase 22 IU/L (14-36); BUN Creatinine Ratio 7.5 (6-22); Blood Urea Nitrogen 4 mg/dL (7-17); Estimated Glomerular Filt Rate > 60 mL/min (>60); Uric Acid 2.9 mg/dL (2.5-6.2)
== END ==
PROVIDERS: Referring Provider Specialist; Visit Provider Specialist
DX: O16.3 Unspecified maternal hypertension, third trimester (principal)
CPT/HCPCS: 36415; 82565; 84450; 84460; 84520; 84550; 85025

== ENCOUNTER 2024-10-20 09:40 | Outpatient (CLI) | payer OTHER, SELFPAY ==
--- NOTE | 2024-10-20 11:13 | P.TNLD_ITS ---
Visit Information Visit Information Date of evaluation: 10/20/24 Primary OB Provider: Thalia Rebolledo On-call OB Provider: Tatyana Frost Reason for Evaluation: Yes other Comments/Additional reasons for admission: Elevated blood pressure at home. Vital Signs Vital Signs: Blood pressures between 104/58 in 129/74, pulse of 89, temperature 36.5? FOR[facility], [facility] Medical History (Updated 10/20/24 @ 11:15 by Tatyana Frost MD) Allergies Shoulder pain (~2017) Chlamydia (~2015) Eczema Concussion (~1997) Incompetent cervix Gestational hypertension Surgical History (Updated 08/05/24 @ 00:01 by ) Anesthesia History of cervical cerclage (~08/2021) H/O tooth extraction (~2012) Family History (Updated 05/24/24 @ 20:38 by Jamilah Johnson) Father Hypertension Mother Atlio-Bvxspltup-Nrxkw (WPW) syndrome SVT (supraventricular tachycardia) Twin delivered Grandmother Cervical cancer Grandmother Thyroid cancer Grandfather AIDS Grandfather Multiple sclerosis Social History marital status: number of children: 1 household members: spouse and children lives independently: Yes caregiver/support person: Yes housing: house pets and animals: Yes (small dogs, gecko) education level: college (some college) occupational status: employed (active duty [employer]) current occupational exposures/hazards: No (not since becoming ) special carlo needs: No travel history: recent ([place], [place], domestic) seatbelt use: always helmet use: Yes water heater temp set < 120 deg: Yes working smoke detector in home: Yes fire extinguisher in home: Yes carbon monox detector in home: Yes firearms in home: Yes firearms unloaded and locked: Yes do you feel safe at home: Yes Smoking Status: Never smoker second hand exposure: No alcohol intake: former substance use type: does not use during the past year weight has: decreased > 10 lbs well-balanced diet: about half the time daily servings fruits/ve-4 caffeine: Yes (occasional cup coffee ) Type(s) of exercise: walking, aerobic and bicycling Review of Systems Review of Systems Narrative: Patient denies headaches, scotomata, epigastric pain. Good movement. No leakage of fluid or vaginal bleeding. No abdominal pain or cramping. Patient just came in because she had an elevated blood pressure at home and was advised to come to labor and delivery. Evaluation Evaluation Variability: Moderate (11-25) monitor accelerations: Present Monitor Decelerations: Absent Contraction Frequency (minutes): 0 Diagnosis, Plan/Disposition Final Diagnosis (1) Elevated blood pressure affecting in third trimester, antepartum: Status: Acute (2) High risk due to history of previous obstetrical problem: Status: Acute (3) 31 weeks gestation of : Status: Acute Plan/Disposition Plan: 29-year-old 2 para 1, delivery from incompetent cervix, at 31 weeks. Patient with history of mild preeclampsia with her 1st . She has been checking her blood pressures at home and were elevated so advised to come into the hospital. Blood pressures here are in the normal range after monitoring. She had normal PIH labs 2 days ago. Patient reassured. Call for any changes. Continue her weekly exams. OB Disposition: home
== END 2024-10-20 10:46 | disposition home or self-care (01) ==
LOC: LABOR 09:56 → OB 10-21 06:23
PROVIDERS: Referring Provider Specialist; Visit Provider Specialist
DX: O26.893 Other specified pregnancy related conditions, third trimester (principal); R03.0 Elevated blood-pressure reading, without diagnosis of hypertension; Z87.59 Personal history of other complications of pregnancy, childbirth and the puerperium; Z3A.31 31 weeks gestation of pregnancy
CPT/HCPCS: 59025; G0378; G0379

== ENCOUNTER 2024-11-21 15:38 | Outpatient (CLI) | payer OTHER, SELFPAY ==
[2024-11-21 16:25] LABS: Add Manual Diff / Slide Review NO; Basophils Absolute Auto 0 /uL (0-100); Basophils Percent Auto 0.3 % (0-2); Eosinophils Absolute Auto 400 /uL (0-450); Eosinophils Percent Auto 3.2 % (2-4); Hematocrit 34.6 % (36-46); Hemoglobin 11.3 g/dL (12.0-16.0); Lymphocytes Absolute Auto 2400 /uL (1100-4500); Lymphocytes Percent Auto 20.7 % (25-40); Mean Corpuscular HGB Conc 32.8 % (30-36); Mean Corpuscular Hemoglobin 27.7 PG (26-34); Mean Corpuscular Volume 84.5 fL (80-100); Monocytes Absolute Auto 1200 /uL (0-900); Monocytes Percent Auto 10.8 % (3-14); Neutrophils Absolute Auto 7400 /uL (1500-7000); Platelet Count 323 X10^3/uL (150-400); Red Cell Distribution Width 13.5 % (11.6-14.8); White Blood Cell Count 11.4 X10^3/uL (4.5-11.0)
[2024-11-21 16:30] LABS: Alanine Aminotransferase 21 IU/L (<35); Albumin 3.7 g/dL (3.5-5.0); Alkaline Phosphatase 85 U/L (38-126); Aspartate Aminotransferase 30 IU/L (14-36); BUN Creatinine Ratio 13.2 (6-22); Bilirubin Total 0.4 mg/dL (0.2-1.3); Blood Urea Nitrogen 7 mg/dL (7-17); Calcium 9.5 mg/dL (8.4-10.2); Carbon Dioxide 20 mmol/L (22-32); Chloride 105 mmol/L (98-107); Estimated Glomerular Filt Rate > 60 mL/min (>60); Globulin 3.7 g/dL (1.7-4.1); Glucose 73 mg/dL (70-100); HEMOLYSIS < 15 (0-50); Potassium 3.9 mmol/L (3.4-5.1); Sodium 133 mmol/L (137-145); Total Protein 7.4 g/dL (6.3-8.2)
[2024-11-21 17:04] VITALS: BP 144/77; PULSE 85
[2024-11-21] MEDS: LABETALOL 100 MG TABLET 200 MG PO (17:04)
[2024-11-21 17:20] LABS: Creatinine Urine Random 147.68 mg/dL; Protein (Total) Urine Random 9 mg/dL (0-12); Protein Creatinine Ratio Urine 0.06 GRAM/24H
== END 2024-11-21 17:30 | disposition home or self-care (01) ==
LOC: LABOR 17:03 → OB 11-24 09:52
PROVIDERS: Referring Provider Obstetrics & Gynecology; Visit Provider Obstetrics & Gynecology
DX: O10.913 Unspecified pre-existing hypertension complicating pregnancy, third trimester (principal); O99.213 Obesity complicating pregnancy, third trimester; E66.9 Obesity, unspecified; Z3A.35 35 weeks gestation of pregnancy
CPT/HCPCS: 59025; 59050; 80053; 82570; 84156; 85025; G0378; G0379

== ENCOUNTER 2024-11-28 11:35 | Outpatient (CLI) | payer OTHER, SELFPAY ==
[2024-11-28 13:00] LABS: Add Manual Diff / Slide Review NO; Basophils Absolute Auto 100 /uL (0-100); Basophils Percent Auto 0.6 % (0-2); Eosinophils Absolute Auto 300 /uL (0-450); Eosinophils Percent Auto 3.1 % (2-4); Lymphocytes Absolute Auto 2100 /uL (1100-4500); Mean Corpuscular HGB Conc 33.4 % (30-36); Mean Corpuscular Volume 83.7 fL (80-100); Monocytes Absolute Auto 1100 /uL (0-900); Monocytes Percent Auto 10.7 % (3-14); Neutrophils Absolute Auto 6400 /uL (1500-7000); Neutrophils Percent Auto 64.6 % (50-75); Platelet Count 315 X10^3/uL (150-400); Red Cell Distribution Width 13.5 % (11.6-14.8); White Blood Cell Count 9.8 X10^3/uL (4.5-11.0)
[2024-11-28 13:10] LABS: Alanine Aminotransferase 21 IU/L (<35); Albumin 3.6 g/dL (3.5-5.0); Alkaline Phosphatase 88 U/L (38-126); Aspartate Aminotransferase 29 IU/L (14-36); Bilirubin Total 0.3 mg/dL (0.2-1.3); Blood Urea Nitrogen 6 mg/dL (7-17); Calcium 9.2 mg/dL (8.4-10.2); Carbon Dioxide 19 mmol/L (22-32); Chloride 107 mmol/L (98-107); Estimated Glomerular Filt Rate > 60 mL/min (>60); Globulin 3.5 g/dL (1.7-4.1); Glucose 90 mg/dL (70-100); HEMOLYSIS < 15 (0-50); Sodium 136 mmol/L (137-145); Total Protein 7.1 g/dL (6.3-8.2); Uric Acid 3.8 mg/dL (2.5-6.2)
[2024-11-28 13:35] LABS: Creatinine Urine Random 302.21 mg/dL; Protein (Total) Urine Random 37 mg/dL (0-12); Protein Creatinine Ratio Urine 0.12 GRAM/24H
== END 2024-11-28 13:33 | disposition home or self-care (01) ==
LOC: LABOR 12:21 → OB 14:28
PROVIDERS: Referring Provider Obstetrics & Gynecology; Visit Provider Obstetrics & Gynecology
DX: O34.33 Maternal care for cervical incompetence, third trimester (principal); O99.213 Obesity complicating pregnancy, third trimester; E66.9 Obesity, unspecified; O13.3 Gestational [pregnancy-induced] hypertension without significant proteinuria, third trimester; Z3A.36 36 weeks gestation of pregnancy
CPT/HCPCS: 59025; 80053; 84550; 85025; G0378; G0379

== ENCOUNTER 2024-12-01 13:32 | Inpatient (IN) | payer OTHER, SELFPAY ==
[2024-12-01 14:06] LABS: Add Manual Diff / Slide Review NO; Basophils Absolute Auto 0 /uL (0-100); Basophils Percent Auto 0.4 % (0-2); Eosinophils Absolute Auto 200 /uL (0-450); Eosinophils Percent Auto 1.5 % (2-4); Hematocrit 33.6 % (36-46); Hemoglobin 11.2 g/dL (12.0-16.0); Lymphocytes Absolute Auto 2400 /uL (1100-4500); Lymphocytes Percent Auto 20.4 % (25-40); Mean Corpuscular HGB Conc 33.5 % (30-36); Mean Corpuscular Hemoglobin 27.9 PG (26-34); Mean Corpuscular Volume 83.3 fL (80-100); Monocytes Absolute Auto 1100 /uL (0-900); Monocytes Percent Auto 9.6 % (3-14); Neutrophils Absolute Auto 7900 /uL (1500-7000); Neutrophils Percent Auto 68.1 % (50-75); Platelet Count 342 X10^3/uL (150-400); Red Blood Cell Count 4.03 X10^6/uL (4.0-5.2); Red Cell Distribution Width 13.6 % (11.6-14.8); White Blood Cell Count 11.6 X10^3/uL (4.5-11.0)
[2024-12-01 14:12] VITALS: BP 176/103; PULSE 88
[2024-12-01] MEDS: LABETALOL 100 MG TABLET 200 MG PO ×2 (14:12→21:02)
[2024-12-01] MEDS: NIFEdipine 30 MG TAB ER PO (14:14)
[2024-12-01 14:19] LABS: Alanine Aminotransferase 24 IU/L (<35); Albumin 3.5 g/dL (3.5-5.0); Albumin Globulin Ratio 0.9 (1.0-2.8); Alkaline Phosphatase 102 U/L (38-126); Aspartate Aminotransferase 34 IU/L (14-36); BUN Creatinine Ratio 13.8 (6-22); Bilirubin Total 0.4 mg/dL (0.2-1.3); Blood Urea Nitrogen 8 mg/dL (7-17); Calcium 9.6 mg/dL (8.4-10.2); Carbon Dioxide 20 mmol/L (22-32); Chloride 105 mmol/L (98-107); Estimated Glomerular Filt Rate > 60 mL/min (>60); Globulin 3.8 g/dL (1.7-4.1); Glucose 84 mg/dL (70-100); HEMOLYSIS < 15 (0-50); Potassium 4.1 mmol/L (3.4-5.1); Sodium 135 mmol/L (137-145); Total Protein 7.3 g/dL (6.3-8.2); Uric Acid 4.4 mg/dL (2.5-6.2)
[2024-12-01 14:55] LABS: Creatinine Urine Random 193.49 mg/dL; Protein (Total) Urine Random 63 mg/dL (0-12); Protein Creatinine Ratio Urine 0.32 GRAM/24H
[2024-12-01 16:26] LABS: Strep Grp B PCR POS for Grp B Strep
[2024-12-01 17:22] VITALS: BP 177/98
--- NOTE | 2024-12-01 17:53 | P.HPOB_ITS ---
OB HPI Date/Time Date of admission: 12/01/24 Date Patient Seen: 12/01/24 Time Patient Seen: 17:53 History of Present Condition Chief complaint: NST SILVESTRE Calculator 2 Estimated Delivery Date Method Current WG Current Estimate 12/22/24 LMP (Certain) 37w 0d Other Estimates 12/22/24 Ultrasound #1 37w 0d Estimated Gestational Age (weeks): 37 : 2 Para: 1 care: good care, initiated at week # (7), number of visits (7) and pounds weight gain (33) Dating criteria OB: LMP confirmed by 1st trimester US Ultrasounds: normal 1st trimester US and normal mid trimester US Obstetrical complications: other (Incompetent cervix, cerclage removed at 36 weeks) Medical complications OB: none Narrative: h/o preeclampsia. On 81mg ASA. Took last dose this morning Indications Indication for induction OB: gestational HTN/pre-eclampsia Preadmission Labs Last OB Lab Results: 2 Blood Type O Positive 06/06/24 14:34 Antibody Screen Negative 06/06/24 14:34 Hct 33.6 % (36-46) L 12/01/24 13:59 Hgb 11.2 g/dL (12.0-16.0) L 12/01/24 13:59 Hep Bs Antigen Negative s/c (NEGATIVE) 06/06/24 14:34 Hepatitis C Antibody Negative s/c (NEGATIVE) 06/06/24 14:34 Rubella Antibody 25.2 IU/mL (>15) 06/06/24 14:34 VZV IgG Antibody 408 index (Immune >165) 06/06/24 14:34 Glucose 1 Hr 50 gm 105 mg/dL (76-139) 09/03/24 10:25 Group B Strep (PCR) Pos for grp b strep H 12/01/24 15:40 -: Chlamydia screen: negative, Gonorrhea screen: negative and Urine: negative -: PAP smear: Normal Genetic Screens: Cell-free DNA: Normal (low risk female) and Alpha-fetoprotein: Normal External Labs -: Urine: negative Prior (ies) Past Pregnancies Del. Date GA/Weeks Labor Lgth Wt Sex Route Outcome Anesthesia Place Delv Breastfeed Preg Comp Name 11/27/21 29.6 12 3 lb 15 oz Female vaginal live - epidural Pat 6 month labor delivery other induced hyper- Margaret Delivery Date: 11/27/21 Last Updated by: Lien Platt RN incompetent cervix Hx # Term Pregnancies: 0 Hx # Pregnancies: 1 Number of Living Children: 1 Multiple births: 0 Spontaneous abortions: 0 Ectopic pregnancies: 0 Elective abortions: 0 Evaluation Evaluation Baseline heart rate: 135 Variability: Moderate (11-25) monitor accelerations: Present Monitor Decelerations: Absent Contraction Frequency (minutes): 8 Uterine Contraction Intensity: Mild Status: Category l Dilation (cm): 1 Effacement (%): 50 Dilation: 1-2 cm Effacement: 40-50% station: -2 Position of cervix: posterior Consistency: medium Branch score: 4 [facility] Medical History (Updated 11/30/24 @ 23:33 by Thalia Rebolledo MD) Allergies Shoulder pain (~2017) Chlamydia (~2015) Eczema Concussion (~1997) Incompetent cervix Gestational hypertension Surgical History (Updated 08/05/24 @ 00:01 by ) Anesthesia History of cervical cerclage (~08/2021) H/O tooth extraction (~2012) Family History (Updated 05/24/24 @ 20:38 by Jamilah Johnson) Father Hypertension Mother Dfspb-Opdttwslz-Jsfdt (WPW) syndrome SVT (supraventricular tachycardia) Twin delivered Grandmother Cervical cancer Grandmother Thyroid cancer Grandfather AIDS Grandfather Multiple sclerosis Social History marital status: number of children: 1 household members: spouse and children lives independently: Yes caregiver/support person: Yes housing: house pets and animals: Yes (small dogs, gecko) education level: college occupational status: employed current occupational exposures/hazards: No (not since becoming ) special carlo needs: No travel history: recent seatbelt use: always helmet use: Yes water heater temp set < 120 deg: Yes working smoke detector in home: Yes fire extinguisher in home: Yes carbon monox detector in home: Yes firearms in home: Yes firearms unloaded and locked: Yes do you feel safe at home: Yes Smoking Status: Never smoker second hand exposure: No alcohol intake: former substance use type: does not use during the past year weight has: decreased > 10 lbs well-balanced diet: about half the time daily servings fruits/ve-4 caffeine: Yes (occasional cup coffee ) Type(s) of exercise: walking, aerobic and bicycling Meds Home Medications and Allergies Home Medications Medication Instructions Recorded Confirmed Type vit no.95-ferrous 1 tab PO DAILY 05/06/24 12/01/24 History fumarate 28 mg-folic acid 800 mcg tablet ( Multivitamins) metoclopramide HCl 10 mg tablet 10 mg PO Q6H PRN nausea and 05/21/24 12/01/24 Rx vomiting #20 tabs ondansetron 4 mg disintegrating 4 mg PO Q6H PRN nausea and 06/19/24 12/01/24 Rx tablet vomiting in #30 tabs [id number] antigen-AS01E 0.5 ml IM ONCE #1 ea 10/23/24 12/01/24 Rx adjuvant(PF) 120 mcg/0.5 mL IM suspension, kit labetalol 200 mg tablet 200 mg PO BID #60 tabs 11/21/24 12/01/24 Rx Allergies Allergy/AdvReac Type Severity Reaction Status Date / Time apple Allergy Intermediate Hives Verified 11/21/24 14:39 OB Exam Narrative Exam Narrative: Generally: Patient is sitting up in bed, no acute distress Lungs: Clear to auscultation bilaterally Cardiovascular: Regular rate and rhythm Fundal height: 38 cm Estimated weight: 7 lb Extremities: 1+ edema, 1+ DTRs, no clonus Objective Labs 12/01/24 13:59 12/01/24 13:59 Labs: Laboratory Results - last 24 hr 12/01/24 12/01/24 12/01/24 12:50 13:59 15:40 WBC 11.6 H RBC 4.03 Hgb 11.2 L Hct 33.6 L MCV 83.3 MCH 27.9 MCHC 33.5 RDW 13.6 Plt Count 342 Neut % (Auto) 68.1 Lymph % (Auto) 20.4 L Elliott % (Auto) 9.6 Eos % (Auto) 1.5 L Baso % (Auto) 0.4 Neut # (Auto) 7900 H Lymph # (Auto) 2400 Elliott # (Auto) 1100 H Eos # (Auto) 200 Baso # (Auto) 0 Sodium 135 L Potassium 4.1 Chloride 105 Carbon Dioxide 20 L BUN 8 Creatinine 0.58 Estimated GFR > 60 BUN/Creatinine Ratio 13.8 Glucose 84 Uric Acid 4.4 Calcium 9.6 Total Bilirubin 0.4 AST 34 ALT 24 Alkaline Phosphatase 102 Total Protein 7.3 Albumin 3.5 Globulin 3.8 Albumin/Globulin Ratio 0.9 L U Random Total Protein 63 H Urine Creatinine 193.49 Protein/Creatinin Ratio 0.32 Group B Strep (PCR) Pos for grp b strep H Assessment and Plan Assessment and Plan Assessment and Plan narrative: Assessment: 29 year 2 para 0101 at 37 weeks' gestation with severe range blood pressures on admission Blood pressures not in the severe range now Cerclage removed last week Unfavorable cervix Plan: We will hold on magnesium for now We will treat blood pressures with oral labetalol and IV labetalol or IV hydralazine as needed GBS obtained Expected management to spontaneous vaginal delivery Time-Based Coding :: [TOTAL MINUTES] spent with patient and on the chart (including review of chart, obtaining history, exam, reviewing outside data, placing orders, documenting exam and treatment plan, and counseling patient) on [DATE].
[2024-12-01] MEDS: LACTATED RINGERS 1,000 ML 50 ML IV (18:08)
[2024-12-01] MEDS: AMPICILLIN 2,000 MG in SODIUM CHLORIDE 0.9% 100 ML 200 MG IV (18:08)
[2024-12-01] MEDS: miSOPROStoL 25 MCG TABLET 50 MCG PO (18:14)
[2024-12-01] MEDS: AMPICILLIN 1,000 MG in SODIUM CHLORIDE 0.9% 100 ML 200 MG IV (22:00)
--- NOTE | 2024-12-01 23:20 | PM.OBPNLAB ---
Date/Time Date Patient Seen: 12/01/24 Time Patient Seen: 23:20 Pain Control Pain control: tolerating well Pelvic Exam Dilation (cm): 1.5 Effacement (%): 70 station: -2 Amniotic membrane status: Intact Contractions Contractions on admission: irregular Monitor mode: External Contraction frequency (min): 3 Contraction duration (min): 1 Contraction pattern: Regular Contraction intensity: Moderate Status status: Category l Heart Rate Baseline: 135 Monitor Accelerations: Present Monitor Decelerations: Absent Monitor Variability: Moderate Assessment and Plan Assessment: induction ongoing Comments: Patient requesting epidural Possible AROM once patient comfortable Expected management to spontaneous vaginal delivery Continue to watch blood pressure
[2024-12-02] VITALS (8 sets, daily range): BP systolic 137–177; BP diastolic 87–103; PULSE 84–100; RESP 14–16; TEMP 36.6; O2SAT 100
--- NOTE | 2024-12-02 00:29 | PM.AN.REGBLK ---
Regional Block Pre-procedure PMH/ROS narrative: active labor complicated by pre-eclampsia without severe features PSH/Anesthesia history narrative: epidural x 1 dental work with c/o difficulties feeling numb ASA Class: III Labs: Hct 33.6 % (36-46) L 12/01/24 13:59 Plt Count 342 X10^3/uL (150-400) 12/01/24 13:59 Medications: Current Medications Generic Name Dose Route Start Last Admin Trade Name Freq PRN Reason Stop Dose Admin Calcium Carbonate 1,000 mg 12/01/24 17:49 Calcium Carbonate 500 Mg Tab PO Q2HR PRN Dyspepsia Carboprost Tromethamine 250 mcg 12/01/24 17:49 Carboprost 250 Mcg/Ml Ampul IM Q90M PRN Bleeding Fentanyl 50 mcg 12/01/24 17:49 Fentanyl 100 Mcg/2 Ml Inj IV Q1H PRN Pain, Moderate (4-6) Lactated Ringer's 1,000 mls @ 50 mls/hr 12/01/24 18:00 12/01/24 18:08 Lactated Ringers IV 12/02/24 13:59 50 mls/hr CONT CELENA Administration Oxytocin/Lactated Ringer's 30 unit in 500 mls @ 200 mls/hr 12/01/24 17:49 Oxytocin Premix IV CONT PRN Bleeding Protocol Tranexamic Acid 1,000 mg/ 100 mls @ 600 mls/hr 12/01/24 17:49 Sodium Chloride IV NOW PRN Bleeding Ampicillin Sodium 1,000 mg/ 100 mls @ 200 mls/hr 12/01/24 22:00 Sodium Chloride IV Q4H CELENA Oxytocin/Lactated Ringer's 30 unit in 500 mls @ 2 mls/hr 12/01/24 18:00 Oxytocin Premix IV TITRATE CELENA Protocol 2 MILLIUNIT/MIN Labetalol HCl 200 mg 12/01/24 21:00 12/01/24 21:02 Labetalol 100 Mg Tablet PO 200 mg BID CELENA Administration Lidocaine HCl 20 ml 12/01/24 17:49 Lidocaine 1% 20 Ml INJ INTRA-OP PRN Post Delivery Methylergonovine Maleate 0.2 mg 12/01/24 17:49 Methylergonovine 0.2 Mg Tablet PO Q6HR PRN Heavy Bleeding Methylergonovine Maleate 0.2 mg 12/01/24 17:49 Methylergonovine 0.2 Mg/Ml Vial IM NOW PRN Bleeding Mineral Oil 30 ml 12/01/24 17:49 Mineral Oil 30 Ml Udc TOP PRN PRN Version Misoprostol 800 mcg 12/01/24 17:49 Misoprostol 200 Mcg Tablet [place] NOW PRN Bleeding Misoprostol 400 mcg 12/01/24 17:49 Misoprostol 200 Mcg Tablet SL NOW PRN Bleeding Misoprostol 50 mcg 12/01/24 17:49 12/01/24 18:14 Misoprostol 25 Mcg Tablet PO 50 mcg Q4H PRN Administration cervical ripening Naloxone HCl 0.2 mg 12/01/24 17:49 Naloxone 0.4 Mg/Ml Vial IV Q2MIN PRN Opiate Reversal Ondansetron HCl 4 mg 12/01/24 17:49 Ondansetron 4 Mg/2 Ml Inj IV Q4HR PRN Nausea And Vomiting Oxytocin 10 unit 12/01/24 17:49 Oxytocin 10 Unit/Ml Vial IM NOW PRN Bleeding Allergies: Allergies Allergy/AdvReac Type Severity Reaction Status Date / Time apple Allergy Intermediate Hives Verified 12/01/24 20:49 --: pt drape and prep with sterile technique. vss. l3 l4 identified. skin wheel with lido 1% 3 cc. tuohy introduced. MARCELO achieved with saline. Procedure Insertion date: 12/02/24 Insertion time: 00:02 Prep/Local: betadine x3 (chloraprep) and 1% lidocaine Interspace: l3 l4 Patient position: sitting Needle: 17 gauge Tuohy Loss of resistance with: saline MARCELO at (cm): 6 Catheter placed at SKIN (cm): 15 Sensory level: t8 Initial Medications TEST DOSE time: 00:04 TEST DOSE: 1.5% lidocaine with epinephrine 1:200k (mL): 3 BOLUS DOSE time: 00:12 BOLUS DOSE (mL): 3 BOLUS DOSE med: 0.125% bupivacaine with fentanyl 10 mcg/mL (0.125 bupivacaine with fentanyl 2mcg/mL) Infusion INFUSION: 0.125% bupivacaine and with fentanyl 2 mcg/mL Initial rate (mL/hr): 8 Post-procedure Anesthesia date START: 12/01/24 Anesthesia time START: 23:50
[2024-12-02] MEDS: AMPICILLIN 1,000 MG in SODIUM CHLORIDE 0.9% 100 ML 200 MG IV ×5 (02:04→18:45)
[2024-12-02] MEDS: OXYTOCIN PREMIX 30 UNIT/500 ML PLAST..BAG IV (02:10)
[2024-12-02] MEDS: FENT 2MCG/ML BUPIV 0.125% EPI 200 MCG/100 ML PLAST..BAG 8 MCG EPIDURAL ×3 (08:03→19:58)
[2024-12-02] MEDS: LABETALOL 100 MG TABLET 200 MG PO ×2 (09:15→20:41)
--- NOTE | 2024-12-02 09:31 | PM.OBPNLAB ---
Date/Time Date Patient Seen: 12/02/24 Time Patient Seen: 09:32 Pain Control Pain control: epidural Pelvic Exam Dilation (cm): 4 Effacement (%): 80 station: -1 Amniotic membrane status: Intact Contractions Contractions on admission: irregular Monitor mode: External Pitocin rate (mU/min): 7 Contraction frequency (min): 3 Contraction duration (min): 1 Contraction pattern: Regular Contraction intensity: Moderate Status status: Category l Heart Rate Baseline: 125 Monitor Accelerations: Present Monitor Decelerations: Absent Monitor Variability: Moderate Assessment and Plan Plan: continuous present management Comments: Expectant management to
[2024-12-02] MEDS: LACTATED RINGERS 1,000 ML 50 ML IV ×2 (10:49→18:49)
--- NOTE | 2024-12-02 14:14 | PM.OBPNLAB ---
Date/Time Date Patient Seen: 12/02/24 Time Patient Seen: 14:14 Pain Control Pain control: epidural Comments: Called to see patient for late decelerations Pelvic Exam Dilation (cm): 7 Effacement (%): 100 station: 0 Amniotic membrane status: Ruptured (clear) Contractions Contractions on admission: irregular Monitor mode: External Pitocin rate (mU/min): 7 Contraction frequency (min): 2 Contraction duration (min): 1 Contraction pattern: Regular Contraction intensity: Strong/Firm Status status: Category l Heart Rate Baseline: 125 Monitor Accelerations: Present Monitor Decelerations: Late Monitor Variability: Moderate Assessment and Plan Assessment: active labor Comments: Pitocin discontinued IVF bolus Position changes OR notified Discussed possibility of C/S with patient
--- NOTE | 2024-12-02 14:40 | PM.OBPNLAB ---
Date/Time Date Patient Seen: 12/02/24 Time Patient Seen: 14:40 Pain Control Pain control: epidural Pelvic Exam Dilation (cm): 7 Effacement (%): 100 station: 0 Amniotic membrane status: Ruptured (clear) Contractions Contractions on admission: irregular Monitor mode: External Pitocin rate (mU/min): 7 Contraction frequency (min): 4 Contraction duration (min): 1 Contraction pattern: Regular Contraction intensity: Moderate Status status: Category l Heart Rate Baseline: 125 Monitor Accelerations: Present Monitor Decelerations: Late Monitor Variability: Minimal (responds to scalp stimulation) Assessment and Plan Assessment: active labor Comments: Pitocin off Position changes OR notified Consider IUPC
[2024-12-02] MEDS: LABETALOL 20 MG/4 ML SYRINGE 10 MG IV ×2 (14:54→17:58)
--- NOTE | 2024-12-02 15:37 | PM.OBPNLAB ---
Date/Time Date Patient Seen: 12/02/24 Time Patient Seen: 15:45 Pain Control Pain control: epidural Pelvic Exam Dilation (cm): 8 Effacement (%): 100 station: +1 Amniotic membrane status: Ruptured (clear) Contractions Contractions on admission: irregular Monitor mode: External Pitocin rate (mU/min): 0 Contraction frequency (min): 3 Contraction duration (min): 1 Contraction pattern: Regular Contraction intensity: Moderate Status status: Category l Heart Rate Baseline: 120 Monitor Accelerations: Present Monitor Decelerations: Absent Monitor Variability: Moderate Assessment and Plan Assessment: active labor Comments: IUPC placed to assess contractions and possibility of amnioinfusion Expectant management to
--- NOTE | 2024-12-02 17:06 | PM.OBPNLAB ---
Date/Time Date Patient Seen: 12/02/24 Time Patient Seen: 17:06 Pain Control Pain control: epidural Comments: Patient feeling pressure Pelvic Exam Dilation (cm): 9 Effacement (%): 100 station: +1 Amniotic membrane status: Ruptured (clear) Comments: IUPC in place Contractions Contractions on admission: irregular Monitor mode: External Pitocin rate (mU/min): 1 Contraction frequency (min): 4 Contraction pattern: Regular Contraction intensity: Strong/Firm Intrauterine tone measurement: 105 Status status: Category l Heart Rate Baseline: 125 Monitor Accelerations: Present Monitor Decelerations: Late (occ) Monitor Variability: Moderate Assessment and Plan Assessment: active labor Plan: continuous present management Comments: Continue present management
[2024-12-02] MEDS: AZITHROMYCIN 500 MG in DEXTROSE 5% IN WATER 250 ML 250 MG IV (19:27)
[2024-12-02] MEDS: CEFAZOLIN 2 GM/100 ML PREMIX 100 ML IV (19:28)
--- NOTE | 2024-12-02 19:58 | PM.OBPNLAB ---
Date/Time Date Patient Seen: 12/02/24 Time Patient Seen: 19:58 Pain Control Pain control: epidural Pelvic Exam Dilation (cm): 9 Effacement (%): 100 station: +1 Amniotic membrane status: Ruptured (clear) Contractions Contractions on admission: irregular Monitor mode: External Pitocin rate (mU/min): 1 Contraction frequency (min): 4 Contraction duration (min): 1 Contraction pattern: Regular Contraction intensity: Strong/Firm Intrauterine tone measurement: 185 Status status: Category l Heart Rate Baseline: 130 Monitor Accelerations: Present Monitor Decelerations: Late Monitor Variability: Moderate Assessment and Plan Assessment: active labor Comments: Side to side posititon changes Will recheck in 30min, and if no change, will proceed to C/S
--- NOTE | 2024-12-02 20:30 | PM.OBPNLAB ---
Date/Time Date Patient Seen: 12/02/24 Time Patient Seen: 20:31 Pain Control Pain control: epidural Pelvic Exam Dilation (cm): 9 Effacement (%): 100 station: +1 Amniotic membrane status: Ruptured (clear) Comments: Cervix swelling Contractions Contractions on admission: irregular Monitor mode: External Pitocin rate (mU/min): 1 Contraction frequency (min): 4 Contraction duration (min): 1 Contraction pattern: Regular Contraction intensity: Strong/Firm Intrauterine tone measurement: 185 Status status: Category l Heart Rate Baseline: 125 Monitor Accelerations: Present Monitor Decelerations: Late Monitor Variability: Moderate Assessment and Plan Assessment: active labor Comments: Will proceed to primary C section The risks, benefits, and alternatives to the procedure were explained to the patient. The risks including bleeding, infection, injury to the bowel, bladder, or ureters. She understands these risks and agrees to proceed. A full par Q was held and consent form was signed.
--- NOTE | 2024-12-02 20:32 | PM.PREOP ---
Pre-operative Note Interval Note History & Physical reviewed/Exam performed by Physician: Yes Changes to H&P: No H&P completed within 30 days and has changed as indicated here:: 12/01/24
[2024-12-02] MEDS: CITRIC ACID/SODIUM CITRATE 15 ML SOLUTION 30 ML PO (21:06)
--- NOTE | 2024-12-02 21:33 | SUR.OPER ---
Supine on Padded OR bed, head on pillow, safety belt at thigh, arms secured on padded arm boards at <90 degrees abduction. Bump under right buttock. Legs uncrossed with pillow under knees, gel pad to heels, tape over blanket to lower legs.
[2024-12-02] MEDS: ACETAMINOPHEN IV 1,000 MG/100 ML VIAL 400 MG IV (21:59)
--- NOTE | 2024-12-02 21:59 | SUR.OPER ---
vaible baby girl born at 2135, placenta delivered at 2137, apgars8/8 FHT prior to case 132 cord blood and placenta given to OB RN
--- NOTE | 2024-12-02 22:23 | P.OP_ITS ---
Operative Date/Time/Diagnoses Date of procedure: 12/02/24 Time of procedure: 22:23 Pre-op diagnosis: 37 weeks gestation Gestational hypertension S/P cerclage removal at 36 weeks Stage 1 arrest of labor OP presentation Post-op diagnosis: same Procedure & Clinicians Procedure: Primary low-transverse section. Same procedure as scheduled: Yes Indications: Stage I arrest of labor Surgeon: Thalia Pichardo Yes if Unassisted: No Bundle Tier And Labeler: Eva Khan Reason for Bundle Tier And Labeler: The assistant infant toddler teacher was necessary to retract upon entry into the abdomen and uterus. She assisted with delivery of the with fundal pressure. She assisted with closure with retraction, clipping of suture, and closure of the contralateral fascia. Anesthesia Type: Epidural (with Duramorph) Operative Notes Findings: Live female infant in the direct occiput posterior presentation Normal tubes and ovaries Small paratubal cyst on the right tube 6 cm by 4 cm sub serosal, pedunculated fibroid at the fundus of the uterus Closure Type: primary Specimen(s): cord blood, cord pH and placenta Intraoperative meds administered: Duramorph, Ketorolac and Pitocin Applied: Catheter (To continuous drainage) Estimated Blood Loss (mL): 450 Blood products transfused: none Procedure in detail: The patient was taken to the operating room where she was placed in the dorsal supine position with a leftward tilt. She was prepped and draped in the usual sterile fashion. Using a sterile glove, an assistant infant toddler teacher lifted the head from below during the procedure. After epidural analgesia was found to be adequate, a Pfannenstiel skin incision was made 2 fingerbreadths above the pubic symphysis and carried through to the underlying layer of fascia. The fascia was nicked in the midline and the incision extended bilaterally with the Goode scissors. The superior aspect of the fascial incision was grasped with the Jackson clamps, elevated, and the underlying rectus muscles dissected off sharply and bluntly. Attention was then turned to the inferior aspect of this incision which in a similar fashion was grasped with the Jackson clamps, elevated, and the underlying rectus muscles dissected off sharply and bluntly. Rectus muscles were in the midline. The peritoneum was identified, grasped to 2 hemostats, and entered sharply with the Metzenbaum scissors. This incision was extended bluntly. An Juan Carlos was placed into the incision. The bowel were packed away with moist lap sponges. The vesicouterine peritoneum was identified, grasped with a pickup, and entered sharply with the Metzenbaum scissors. This incision was extended bilaterally, and the bladder flap created digitally. The bladder blade was inserted. The lower uterine segment was incised in a transverse fashion with the scalpel. Upon entering the amniotic sac there was clear amniotic fluid and the infant was found to be in the direct occiput posterior presentation. With the assistant infant toddler teacher lifting the head from below the head was delivered without difficulty. The nose and mouth were suctioned with bulb suction. The remainder of the body delivered without difficulty and was wrapped in a sterile warm blanket. After 1 minute, the cord was double clamped and cut. Cord bloods were obtained. Pitocin was given in the IV fluids. The placenta delivered by expression. The uterus was cleared of all clots and debris. The uterine incision was repaired with 1. Chromic in a running and locking fashion. A second layer of the same suture was used for an imbricating layer. Hemostasis was achieved. The tubes and ovaries were examined and were found to be normal. There was a large of subserosal fibroid that was visualized at the fundus of the uterus this was pedunculated. The bladder flap was reapproximated using 0 Vicryl in a running fashion. The Juan Carlos was removed from the incision as well as the lap sponges. The gutters were cleared of all clots and debris. The peritoneum was closed using 2-0 Vicryl in a running fashion. The fascia was reapproximated using 0 Vicryl in a running fashion. The subcutaneous layer was irrigated copiously with warm normal saline. Five simple interrupted sutures of 3-0 Vicryl were placed to reapproximate the subcutaneous layer. The skin was closed with 4-0 Monocryl in a subcuticular fashion. Steri-Strips and an Aquacel dressing were placed. The uterus was expressed of a small amount of old blood. The fundus was marked at U -1. Sponge, lap, and instrument counts were correct x2. The patient tolerated the procedure well, and was taken to PACU in stable condition. Complications: none Stem Baby 1: Delivery Date: 12/02/24 Delivery Time: 21:36 Gender: Female Presentation: vertex Position: Occiput Posterior Placental Delivery Description: Expressed Cord Vessel Description: 3 Vessels score (1 min): 8 score (5 min): 8 weight: 5 lb 7.2 oz Post-operative Condition: stable Disposition: PACU Aftercare: routine postop
[2024-12-02] MEDS: OXYCODONE IR 5 MG TABLET PO (22:34)
[2024-12-02] MEDS: HYDRALAZINE 20 MG/ML VIAL 5 MG IV (23:00)
[2024-12-02] MEDS: MORPHINE 2 MG/ML INJ IV (23:07)
[2024-12-02] MEDS: MAGNESIUM HYDROXIDE 30 ML UDC PO (23:08)
[2024-12-03] MEDS: LACTATED RINGERS 1,000 ML 50 ML IV (01:26)
[2024-12-03] MEDS: OXYCODONE IR 10 MG TABLET PO ×4 (02:39→23:50)
[2024-12-03] MEDS: KETOROLAC 30 MG/ML VIAL IV ×3 (04:51→18:48)
[2024-12-03] MEDS: ACETAMINOPHEN 325 MG TABLET 650 MG PO ×3 (04:52→22:37)
[2024-12-03 05:47] LABS: Add Manual Diff / Slide Review NO; Basophils Absolute Auto 0 /uL (0-100); Basophils Percent Auto 0.3 % (0-2); Eosinophils Absolute Auto 200 /uL (0-450); Eosinophils Percent Auto 1.2 % (2-4); Hematocrit 28.5 % (36-46); Hemoglobin 9.6 g/dL (12.0-16.0); Lymphocytes Absolute Auto 2900 /uL (1100-4500); Lymphocytes Percent Auto 20.8 % (25-40); Mean Corpuscular HGB Conc 33.6 % (30-36); Mean Corpuscular Volume 83.4 fL (80-100); Monocytes Absolute Auto 1200 /uL (0-900); Monocytes Percent Auto 8.2 % (3-14); Neutrophils Absolute Auto 9800 /uL (1500-7000); Neutrophils Percent Auto 69.5 % (50-75); Platelet Count 287 X10^3/uL (150-400); Red Blood Cell Count 3.42 X10^6/uL (4.0-5.2); Red Cell Distribution Width 13.7 % (11.6-14.8); White Blood Cell Count 14.1 X10^3/uL (4.5-11.0)
[2024-12-03 09:32] VITALS: BP 141/85; PULSE 86
[2024-12-03] MEDS: LABETALOL 100 MG TABLET 200 MG PO ×2 (09:32→21:48)
[2024-12-03] MEDS: DOCUSATE 100 MG CAPSULE PO (12:45)
[2024-12-03] MEDS: LANOLIN OINT 7 GM 1 APPLIC TOP (12:45)
[2024-12-03 12:47] VITALS: TEMP 37.1
[2024-12-03 21:48] VITALS: BP 142/88; PULSE 104
[2024-12-03 22:39] VITALS: BP 146/85; PULSE 106
[2024-12-04] MEDS: IBUPROFEN 600 MG TABLET PO ×4 (01:10→21:38)
[2024-12-04] MEDS: OXYCODONE IR 10 MG TABLET PO ×4 (04:23→17:15)
[2024-12-04] MEDS: ACETAMINOPHEN 325 MG TABLET 650 MG PO ×3 (04:23→17:17)
[2024-12-04 08:25] VITALS: BP 153/89; TEMP 36.8
[2024-12-04] MEDS: DOCUSATE 100 MG CAPSULE PO (08:25)
[2024-12-04] MEDS: LABETALOL 100 MG TABLET 200 MG PO ×3 (08:25→23:38)
[2024-12-04] MEDS: PRENATAL VIT,CALC/IRON/FOLIC 1 TABLET 1 TAB PO (08:25)
[2024-12-04 10:14] VITALS: TEMP 36.8
[2024-12-04] MEDS: MAGNESIUM HYDROXIDE 30 ML UDC PO (17:18)
[2024-12-04] MEDS: OXYCODONE IR 5 MG TABLET PO (23:17)
[2024-12-05 00:30] VITALS: BP 128/67
[2024-12-05] MEDS: IBUPROFEN 600 MG TABLET PO ×2 (03:10→09:01)
[2024-12-05] MEDS: ACETAMINOPHEN 325 MG TABLET 650 MG PO ×2 (03:10→09:01)
[2024-12-05] MEDS: OXYCODONE IR 5 MG TABLET PO (05:25)
[2024-12-05] MEDS: WITCH HAZEL/GLYCERIN PADS 1 EACH TOP (05:40)
[2024-12-05] MEDS: LANOLIN OINT 7 GM 1 APPLIC TOP (05:40)
[2024-12-05 09:02] VITALS: BP 149/82; PULSE 97
[2024-12-05] MEDS: LABETALOL 100 MG TABLET 200 MG PO (09:02)
[2024-12-05] MEDS: PRENATAL VIT,CALC/IRON/FOLIC 1 TABLET 1 TAB PO (09:02)
[2024-12-05] MEDS: DOCUSATE 100 MG CAPSULE PO (09:02)
[2024-12-05 10:09] VITALS: BP 149/82; PULSE 97; RESP 15; TEMP 36.8
[2024-12-05 14:40] VITALS: BP 133/72; PULSE 97; RESP 18; TEMP 37.1
--- NOTE | 2024-12-18 00:04 | PM.OBPN.1 ---
Subjective - OB Subjective Patient comments: incisional pain baby status: doing well and nursing well [place] feeding status: exclusively breast feeding Date Patient Seen: 12/03/24 Time Patient Seen: 12:30 Interval history: POD#1 s/p C section for stage 1 arrest of labor Exam Vital Signs (past 8 hours): Oxygen Delivery Method Room Air Narrative Exam Narrative: Gen: NAD Lungs: CTA bilat CV: RRR Fundus: Firm at U Inc: C/D/I with Aquacel Ext: 1+ edema, neg Sy's Objective Labs 12/03/24 05:28 12/01/24 13:59 Assessment & Plan Plan day: 1 plan OB: routine postop care Comments: Trend BP's Time-Based Coding :: [TOTAL MINUTES] spent with patient and on the chart (including review of chart, obtaining history, exam, reviewing outside data, placing orders, documenting exam and treatment plan, and counseling patient) on [DATE].
--- NOTE | 2024-12-18 00:08 | PM.OBPN.1 ---
Subjective - OB Subjective Patient comments: no complaints and pain well controlled baby status: doing well and nursing well feeding status: exclusively breast feeding Date Patient Seen: 12/04/24 Time Patient Seen: 07:45 Interval history: POD #1-2 s/p c section for stage 1 arrest of labor Exam Vital Signs (past 8 hours): Oxygen Delivery Method Room Air Narrative Exam Narrative: Gen: NAD Lungs: CTA bilat CV: RRR Fundus: Firm U/-1 Inc: C/D/I Ext: neg Sy's. 1+edema Objective Labs 12/03/24 05:28 12/01/24 13:59 Assessment & Plan Plan day: 2 plan OB: routine postop care Comments: Anticipate d/c 12/05/24 Time-Based Coding :: [TOTAL MINUTES] spent with patient and on the chart (including review of chart, obtaining history, exam, reviewing outside data, placing orders, documenting exam and treatment plan, and counseling patient) on [DATE].
--- NOTE | 2024-12-18 00:10 | PM.OBDS.1 ---
Discharge Providers Provider Date of admission: 12/01/24 13:32 Discharge Date: 12/05/24 Primary care physician: Jefferson DELGADILLO Provider Consults: 12/01/24 17:49 Consult to Anesthesiology Urgent Comment: Consulting Provider: Anesthesiologist Reason for consultation: Epidural Has provider been notified: Yes 12/02/24 22:47 Consult to Physical Medicine Teacher Routine Comment: Discharge provider: Thalia Rebolledo MD Summary Hospital Course Date Patient Seen: 12/05/24 Time Patient Seen: 07:40 Diagnoses: 37 weeks gestation Gestational hypertension Induction of labor Stage 1 arrest of labor Primary C section Epidural analgesia Hospital Course: Patient is a 29-year-old 2 para 2 who presented on December 01, 2024 with severe range blood pressures at 37 weeks gestation. An induction was started. She received an epidural for pain management. She progressed slowly in stage I of labor. She had a stage I arrest of labor and underwent a primary low transverse section. was found to be in the direct occiput posterior presentation. Her postoperative course was unremarkable. She was discharged home on postop day #3 on labetalol and nifedipine. Peripartum Data Infant Delivery Method: Section Procedures: Induction of labor with Pitocin Epidural analgesia Primary low transverse C section complications: none [place] 1: Gender: Female Disposition of : home Status at Discharge Cognitive/behavioral status at discharge: oriented Functional status at discharge: independent ambulation Overall status at discharge: patient is progressing back to baseline Time Spent with Patient Time attestation: Total time spent providing and/or coordinating discharge services: Time spent: Less than 30 minutes Objective Labs 12/03/24 05:28 12/01/24 13:59 Exam Vital Signs (past 8 hours): Oxygen Delivery Method Room Air Narrative Exam Narrative: Gen: NAD, sitting up BF Lungs: CTA bilat CV: RRR Fundus: Firm U/-1 Inc: C/D/I Ext: 1+ edema, neg Sy's Discharge Plan Discharge Plan Patient Disposition: Home Provider Discharge Comment: Call with fever, chills, redness or drainage around the incision, or bleeding vaginally more than a pad in an hour Call with headache not taken care of with ibuprofen or Tylenol, blurred vision, spots before her eyes, or right upper quadrant pain Stool softener as needed Push oral fluids Elevate legs at home as much as possible If systolic blood pressure, top number, is greater than 159, or bottom number greater than 99, take an additional 100 mg dose of labetalol Discharge orders & Medications Prescriptions: Continued PNV cmb#95-ferrous fumarate-FA [ Multivitamins] 28 mg iron- 800 mcg tablet 1 tab PO DAILY Discontinued ondansetron 4 mg tablet,disintegrating 4 mg PO Q6H PRN (Reason: nausea and vomiting in ) Qty: 30 1RF RSVPreF3 antigen-AS01E (PF) 120 mcg/0.5 mL suspension for reconstitution 0.5 ml IM ONCE Qty: 1 0RF labetalol 200 mg tablet 200 mg PO BID Qty: 60 0RF metoclopramide HCl 10 mg tablet 10 mg PO Q6H PRN (Reason: nausea and vomiting) Qty: 20 0RF No Action docusate sodium [Colace] 100 mg capsule 200 mg PO DAILY Qty: 30 2RF ibuprofen [IBU] 600 mg tablet 600 mg PO TID PRN (Reason: pain) Qty: 60 2RF labetalol 200 mg tablet 200 mg PO TID Qty: 60 0RF nifedipine 30 mg tablet extended release 30 mg PO DAILY Qty: 30 3RF Follow up/Referrals: Thalia Rebolledo MD [Physician] - (1 week Aquacel dressing removal and blood pressure check on 12/08/2024 @ 0900. [address] Rebolledo 01/21/2025 @ 10am) Diet/Activity/Treatments Diet: Regular Activity: Nothing in the vagina for 6 weeks No heavy lifting, nothing more than the baby or a gal milk Keep legs elevated as much as possible Skin/Wound/Dressing Care Report to your healthcare provider any signs of infection, such as:: chills, fever, increased pain, unusual drainage and unusual redness Dressing: Do not remove Visit Report/Discharge Packet Instructions: DI for , DI for Prescription Opioid Use, Preeclampsia and Eclampsia After Childbirth Stand Alone Forms: Patient Portal/API, Stroke Signs & Symptoms Discharge Data Primary Care Provider: ProviderJefferson
== END 2024-12-05 13:20 | disposition home or self-care (01) | DRG 786 ==
PROVIDERS: Admitting Provider Obstetrics & Gynecology; Referring Provider Obstetrics & Gynecology; Visit Provider Obstetrics & Gynecology
PROC: 10D00Z1 Extraction of Products of Conception, Low, Open Approach (ICD-10-PCS; CPT 59514; principal; 2024-12-02 22:15)
DX: O13.4 Gestational [pregnancy-induced] hypertension without significant proteinuria, complicating childbirth (principal); O34.33 Maternal care for cervical incompetence, third trimester; O76 Abnormality in fetal heart rate and rhythm complicating labor and delivery; Z3A.37 37 weeks gestation of pregnancy; Z37.0 Single live birth; O62.1 Secondary uterine inertia; O65.5 Obstructed labor due to abnormality of maternal pelvic organs; O99.824 Streptococcus B carrier state complicating childbirth; O34.13 Maternal care for benign tumor of corpus uteri, third trimester; D25.2 Subserosal leiomyoma of uterus
CPT/HCPCS: 36415; 59050; 59200; 59510; 59514; 80053; 84550; 85025; 86850; 86900; 86901; 87653; G0379; J0134; J0290; J0360; J0690; J1885; J2270; J2590

== ENCOUNTER 2024-12-09 08:11 | Observation (INO) | payer OTHER, SELFPAY ==
[2024-12-09] VITALS (28 sets, daily range): BP systolic 134–221; BP diastolic 61–107; PULSE 84–113; RESP 13–97; TEMP 36.4–37.6; O2SAT 94–100; BMI 42.0
--- NOTE | 2024-12-09 08:43 | ED.GENADULT ---
HPI - General Adult General Chief complaint: Shortness of Breath/Dyspnea Stated complaint: Labored breathing Time Seen by Provider: 12/09/24 08:28 History of Present Illness HPI narrative: Patient here with spouse for complaints of elevated blood pressure. Patient is postop day 7 status post with history of preeclampsia. Patient is on labetalol 200 mg 3 times a day. Patient had follow up visit yesterday and blood pressure has been doing well since being discharged less than a week ago. Denies any headache abdominal pain confusion no seizures. No numbness tingling or weakness. No back pain. Denies any increased swelling to the ankles or feet no urinary complaints. Patient has not taken her labetalol this morning Related Data Home Medications Medication Instructions Recorded Confirmed vit no.95-ferrous 1 tab PO DAILY 05/06/24 12/09/24 fumarate 28 mg-folic acid 800 mcg tablet ( Multivitamins) Previous Rx's Medication Instructions Recorded docusate sodium 100 mg capsule 200 mg (2 x 100 mg) PO DAILY #30 12/05/24 (Colace) caps ibuprofen 600 mg tablet (IBU) 600 mg PO TID PRN pain #60 tabs 12/05/24 Allergies Allergy/AdvReac Type Severity Reaction Status Date / Time apple Allergy Intermediate Hives Verified 12/09/24 16:53 Review of Systems Review of Systems Narrative: GENERAL: Negative chills, fatigue, malaise, fever, sweats. HEENT: Negative sinus pain, ear pain, sore throat RESPIRATORY: Negative dyspnea, cough CARDIOVASCULAR: Negative chest pain, palpitations GASTROINTESTINAL: Negative vomiting, nausea, abdominal pain : Negative dysuria, frequency, hematuria MUSCULOSKELETAL: Negative muscle or bony pain SKIN: Negative rash, skin lesions NEUROLOGIC: Negative weakness, numbness, negative seizure negative headache ROS Unobtainable: All systems reviewed & are unremarkable except as noted in HPI and below Patient History Medical History (Updated 12/09/24 @ 10:06 by Dre Gallardo MD) Allergies Shoulder pain (~2017) Chlamydia (~2015) Eczema Concussion (~1997) Incompetent cervix Gestational hypertension Surgical History (Updated 08/05/24 @ 00:01 by ) Anesthesia History of cervical cerclage (~08/2021) H/O tooth extraction (~2012) Family History (Updated 05/24/24 @ 20:38 by Jamilah Johnson) Father Hypertension Mother Dnrrx-Phlhyfqin-Cfinu (WPW) syndrome SVT (supraventricular tachycardia) Twin delivered Grandmother Cervical cancer Grandmother Thyroid cancer Grandfather AIDS Grandfather Multiple sclerosis Social History marital status: number of children: 1 household members: spouse and children lives independently: Yes caregiver/support person: Yes housing: house pets and animals: Yes (small dogs, gecko) education level: college occupational status: employed current occupational exposures/hazards: No (not since becoming ) special carlo needs: No travel history: recent seatbelt use: always helmet use: Yes water heater temp set < 120 deg: Yes working smoke detector in home: Yes fire extinguisher in home: Yes carbon monox detector in home: Yes firearms in home: Yes firearms unloaded and locked: Yes do you feel safe at home: Yes Smoking Status: Never smoker second hand exposure: No alcohol intake: former substance use type: does not use during the past year weight has: decreased > 10 lbs well-balanced diet: about half the time daily servings fruits/ve-4 caffeine: Yes (occasional cup coffee ) Type(s) of exercise: walking, aerobic and bicycling Smoking Status: Never smoker Exam Narrative Exam Narrative: GENERAL: in no distress, not toxic not dyspneic HEAD: Normocephalic. EYES: Pupils equal round ENT: Mucous membranes moist. NECK: Trachea midline. CARDIOVASCULAR: Regular rate and rhythm RESPIRATORY: Clear to auscultation. Breath sounds equal bilaterally. No wheezes, rales, or rhonchi. GASTROINTESTINAL: Abdomen soft, non-tender EXTREMITIES: No gross deformities. BACK: No flank tenderness. NEURO: AOx4. Clear speech SKIN: Warm and dry PSYCH: Not anxious, is cooperative Initial Vital Signs Initial Vital Signs: Vital Signs Temperature 98.9 F 12/09/24 08:15 Pulse Rate 104 H 12/09/24 08:15 Respiratory Rate 18 12/09/24 08:15 Blood Pressure 182/78 H 12/09/24 08:15 Pulse Oximetry 97 12/09/24 08:15 Oxygen Delivery Method Room Air 12/09/24 08:15 Course Orders Ordered: Acetaminophen (Acetaminophen 325 Mg Tablet) 650 mg PO Q6H PRN PRN Reason: Fever/Mild Pain (1-3) Last Admin: 12/10/24 04:13 Dose: 650 mg Documented By: Admin: 12/09/24 20:59 Dose: 650 mg Documented By: Admin: 12/09/24 15:01 Dose: 650 mg Documented By: HERO Docusate Sodium (Docusate 100 Mg Capsule) 200 mg PO DAILY [facility] Emollient Ointment (Lanolin Oint 7 Gm) 1 applic TOP PRN PRN PRN Reason: Sore Nipples Ibuprofen (Ibuprofen 600 Mg Tablet) 600 mg PO Q6HR PRN PRN Reason: Fever/Mild Pain (1-3) Last Admin: 12/10/24 06:10 Dose: 600 mg Documented By: Admin: 12/09/24 21:00 Dose: 600 mg Documented By: Admin: 12/09/24 15:00 Dose: 600 mg Documented By: HERO Labetalol HCl (Labetalol 100 Mg Tablet) 200 mg PO BID [facility] Last Admin: 12/09/24 21:00 Dose: 200 mg Documented By: GENE Nifedipine (Nifedipine 30 Mg Tab Er) 30 mg PO DAILY [facility] Discontinued Medications Furosemide (Furosemide 20 Mg/2 Ml Vial) 20 mg IV NOW ONE Stop: 12/09/24 15:01 Last Admin: 12/09/24 15:02 Dose: 20 mg Documented By: HERO Hydralazine HCl (Hydralazine 20 Mg/Ml Vial) 10 mg IV NOW ONE Stop: 12/09/24 09:37 Last Admin: 12/09/24 09:47 Dose: 10 mg Documented By: CYNTHIA Magnesium Sulfate (Magnesium Sulfate) 4 gm in 100 mls @ 150 mls/hr IV NOW ONE Stop: 12/09/24 10:41 Ibuprofen (Ibuprofen 600 Mg Tablet) 600 mg PO NOW ONE Stop: 12/09/24 09:09 Last Admin: 12/09/24 09:13 Dose: 600 mg Documented By: CYNTHIA Labetalol HCl (Labetalol 100 Mg Tablet) 200 mg PO NOW ONE Stop: 12/09/24 08:42 Last Admin: 12/09/24 09:12 Dose: 200 mg Documented By: CYNTHIA Nifedipine (Nifedipine 30 Mg Tab Er) 30 mg PO NOW ONE Stop: 12/09/24 10:44 Last Admin: 12/09/24 10:43 Dose: 30 mg Documented By: Nifedipine (Nifedipine 30 Mg Tab Er) 30 mg PO NOW ONE Stop: 12/09/24 10:44 Vital Signs Vital signs: Vital Signs - 8 hr 12/09/24 08:15 12/09/24 08:25 12/09/24 08:26 Temperature 98.9 F Pulse Rate 104 H 104 H 104 H Respiratory Rate 18 Blood Pressure 182/78 H Pulse Oximetry 97 99 97 Oxygen Delivery Method Room Air 12/09/24 08:26 12/09/24 08:30 12/09/24 08:30 Temperature Pulse Rate 106 H Respiratory Rate Blood Pressure 182/101 H 187/107 H Pulse Oximetry 98 Oxygen Delivery Method 12/09/24 09:00 12/09/24 09:00 12/09/24 09:07 Temperature Pulse Rate 100 H 106 H Respiratory Rate Blood Pressure 197/91 H Pulse Oximetry 98 98 Oxygen Delivery Method 12/09/24 09:07 12/09/24 09:30 12/09/24 09:31 Temperature Pulse Rate 84 99 H Respiratory Rate Blood Pressure 184/86 H Pulse Oximetry 94 97 Oxygen Delivery Method 12/09/24 09:31 12/09/24 09:34 12/09/24 09:34 Temperature Pulse Rate 101 H Respiratory Rate Blood Pressure 221/98 H 181/83 H Pulse Oximetry 97 Oxygen Delivery Method 12/09/24 09:47 12/09/24 10:00 12/09/24 10:00 Temperature Pulse Rate 100 H 101 H Respiratory Rate 13 Blood Pressure 181/83 H 164/74 H Pulse Oximetry 98 Oxygen Delivery Method Medical Decision Making Lab Data 12/10/24 06:05 12/10/24 06:05 Labs: Lab Results 12/09/24 12/09/24 Range/Units 08:50 09:09 WBC 16.0 H (4.5-11.0) X10^3/uL RBC 3.31 L (4.0-5.2) X10^6/uL Hgb 9.1 L (12.0-16.0) g/dL Hct 27.5 L (36-46) % MCV 83.1 (80-100) fL MCH 27.6 (26-34) PG MCHC 33.2 (30-36) % RDW 13.9 (11.6-14.8) % Plt Count 649 H (150-400) X10^3/uL Neut % (Auto) 79.0 H (50-75) % Lymph % (Auto) 9.9 L (25-40) % [place] % (Auto) 8.0 (3-14) % Eos % (Auto) 2.3 (2-4) % Baso % (Auto) 0.8 (0-2) % Neut # (Auto) 04978 H (7552-2364) /uL Lymph # (Auto) 1600 (9042-7115) /uL [place] # (Auto) 1300 H (0-900) /uL Eos # (Auto) 400 (0-450) /uL Baso # (Auto) 100 (0-100) /uL PT 13.3 H (9.4-12.5) SECONDS INR 1.2 (0.9-1.3) APTT 31 (25.1-36.5) SECONDS Sodium 137 (137-145) mmol/L Potassium 4.2 (3.4-5.1) mmol/L Chloride 107 (98-107) mmol/L Carbon Dioxide 19 L (22-32) mmol/L BUN 7 (7-17) mg/dL Creatinine 0.57 (0.52-1.04) mg/dL Estimated GFR > 60 (>60) mL/min BUN/Creatinine Ratio 12.3 (6-22) Glucose 97 (70-100) mg/dL Calcium 9.3 (8.4-10.2) mg/dL Total Bilirubin 0.6 (0.2-1.3) mg/dL AST 31 (14-36) IU/L ALT 26 (<35) IU/L Alkaline Phosphatase 141 H (38-126) U/L Total Protein 7.9 (6.3-8.2) g/dL Albumin 3.7 (3.5-5.0) g/dL Globulin 4.2 H (1.7-4.1) g/dL Albumin/Globulin Ratio 0.9 L (1.0-2.8) Urine Color Yellow Urine Appearance Sl cloudy Urine pH 7.5 (4.5-8.0) Ur Specific [place] 1.020 (1.000-1.035) Urine Protein 1+ H (Negative) Urine Glucose (UA) Negative (Negative) g/dL Urine Ketones Negative (NEGATIVE) Urine Occult Blood 3+ H (Negative) Urine Nitrate Negative (Negative) Urine Bilirubin Negative (NEGATIVE) Urine Urobilinogen 1.0 (0.2) E.U./dL Ur Leukocyte Esterase 1+ H (NEGATIVE) Urine RBC 10-30/hpf H (0-5/HPF) Urine WBC 10-30/hpf H (0-5/HPF) Ur Squamous Epith Cells 1-5 /hpf (0-5/HPF) Urine Bacteria Occasional (0-1) (None) Ur Culture Indicated? Specimen cultured Vol Urine Centrifuged 10ml (spun) Imaging Data Chest x-ray: Radiologist's Impression: [address] [address] XRay Report Signed Patient: Niharika Cooper MR#: [id number] : 1995 Acct:[id number] Age/Sex: 29 / F Date of Service: 12/09/24 Loc: 90B-1 Accession Number: [id number] Procedure: XR chest 1V Ordering Provider: Dre Gallardo MD PROCEDURE: XR CHEST 1V INDICATIONS: Chest pain TECHNIQUE: One view of the chest was acquired. COMPARISON: None. FINDINGS: Surgical changes and devices: None. Lungs and pleura: Increased bronchovascular markings in bilateral hilar region are seen with mild bronchial wall thickening. No definite focal infiltrate. No pleural effusions or pneumothorax. Mediastinum: Mediastinal contours appear normal. Heart size is normal. Bones and chest wall: No suspicious bony lesions. Overlying soft tissues appear unremarkable. IMPRESSION: Suggestion of reactive airway disease such as bronchiolitis or viral illness. No definite focal infiltrate. No pleural effusion or pneumothorax. Dictated by: Luther Ragland M.D. on 12/09/2024 at 10:31 Approved by: Luther Ragland M.D. on 12/09/2024 at 10:32 [facility] Narrative Medical decision making narrative: Patient here with spouse for complaints of elevated blood pressure. Patient is postop day 7 status post with history of preeclampsia. Patient is on labetalol 200 mg 3 times a day. Patient had follow up visit yesterday and blood pressure has been doing well since being discharged less than a week ago. Denies any headache abdominal pain confusion no seizures. No numbness tingling or weakness. No back pain. Denies any increased swelling to the ankles or feet no urinary complaints. Patient has not taken her labetalol this morning After history and exam, labetalol 200 mg by mouth, CBC CMP EKG PT INR PTT urinalysis, Ob consult MDM Medical records reviewed: No recent visit here for this complaint Differential considered: Includes but not limited to preeclampsia eclampsia Lab Test results independently reviewed as above. Pertinent findings: WBC 16.0 hemoglobin 9.1 sodium 137 potassium 4.2 AST 31 ALT 26 urinalysis positive protein Independently reviewed EKG normal sinus rhythm rate 97 Consultations: 9:37 a.m.. Updated ALIREZAN, Dr. Novak, she is receiving patient's records. She would like hydralazine 10 mg now if no improvement in 15 minutes give 20 mg hydralazine. No magnesium at this time. 10:[address] Rebolledo, ALIREZAN, 1 and x-ray chest here. If normal appearing then she would like CT chest PE protocol. I did reviewed results of x-ray and went to order chest CT however it was read as a duplicate order and I canceled my order. 10:[address] Novak, she will admit patient. She would like nifedipine ER 30 mg by mouth, magnesium sulfate 4 g IV. Treatments: Labetalol nifedipine magnesium Re-evaluations: 10:10 a.m.. Updated patient and partner, they do understand they need admission for blood pressure control and likely new medications. Blood pressure has improved. 164/74 Discussion: Appropriate for admission for blood pressure control/preeclampsia. OBGYN was consulted. Diagnosis: Preeclampsia hypertension Discharge Plan Departure Patient Disposition: Admitted as Observation Clinical Impression: Pre-eclampsia Qualifiers: Trimester: unspecified trimester Qualified Code(s): O14.90 - Unspecified pre-eclampsia, unspecified trimester Admit Date/Time: 12/09/24 10:03 Admit Provider: Geneva Retana
--- NOTE | 2024-12-09 08:49 | EKG_ITS ---
[address] [address] Test Date: 2024-12-09 Pat Name: Niharika Cooper Department: [facility] Room: Gender: Female Hotel Yardperson: HARPAL : 1995 Requested By: Order Number: [id number] Reading MD: Landon Bryant Measurements Intervals [place] Rate: 97 P: 14 NE: 116 QRS: 53 QRSD: 74 T: 41 QT: 342 QTc: 434 Interpretive Statements Sinus rhythm with marked sinus arrhythmia Electronically Signed On 12-09-2024 9:57:33 PDT by Landon Bryant
[2024-12-09 09:03] LABS: Basophils Absolute Auto 100 /uL (0-100); Basophils Percent Auto 0.8 % (0-2); Eosinophils Absolute Auto 400 /uL (0-450); Eosinophils Percent Auto 2.3 % (2-4); Hematocrit 27.5 % (36-46); Hemoglobin 9.1 g/dL (12.0-16.0); Lymphocytes Absolute Auto 1600 /uL (1100-4500); Lymphocytes Percent Auto 9.9 % (25-40); Mean Corpuscular HGB Conc 33.2 % (30-36); Mean Corpuscular Hemoglobin 27.6 PG (26-34); Mean Corpuscular Volume 83.1 fL (80-100); Monocytes Absolute Auto 1300 /uL (0-900); Neutrophils Absolute Auto 12700 /uL (1500-7000); Platelet Count 649 X10^3/uL (150-400); Red Blood Cell Count 3.31 X10^6/uL (4.0-5.2); Red Cell Distribution Width 13.9 % (11.6-14.8)
[2024-12-09 09:10] LABS: INR 1.2 (0.9-1.3); Prothrombin Time 13.3 SECONDS (9.4-12.5)
[2024-12-09] MEDS: LABETALOL 100 MG TABLET 200 MG PO ×2 (09:12→21:00)
[2024-12-09 09:13] LABS: Alanine Aminotransferase 26 IU/L (<35); Albumin 3.7 g/dL (3.5-5.0); Albumin Globulin Ratio 0.9 (1.0-2.8); Alkaline Phosphatase 141 U/L (38-126); Aspartate Aminotransferase 31 IU/L (14-36); BUN Creatinine Ratio 12.3 (6-22); Bilirubin Total 0.6 mg/dL (0.2-1.3); Blood Urea Nitrogen 7 mg/dL (7-17); Calcium 9.3 mg/dL (8.4-10.2); Carbon Dioxide 19 mmol/L (22-32); Chloride 107 mmol/L (98-107); Estimated Glomerular Filt Rate > 60 mL/min (>60); Globulin 4.2 g/dL (1.7-4.1); Glucose 97 mg/dL (70-100); HEMOLYSIS 16 (0-50); PTT Partial Thromboplastin Tim 31 SECONDS (25.1-36.5); Potassium 4.2 mmol/L (3.4-5.1); Sodium 137 mmol/L (137-145); Total Protein 7.9 g/dL (6.3-8.2)
[2024-12-09] MEDS: IBUPROFEN 600 MG TABLET PO ×3 (09:13→21:00)
[2024-12-09 09:15] LABS: Appearance Urine UA SL CLOUDY; Bilirubin Urine UA NEGATIVE (NEGATIVE); Color Urine UA YELLOW; Glucose Urine UA NEGATIVE (Negative); Ketones Urine UA NEGATIVE (NEGATIVE); Leukocyte Esterase Urine UA 1+ (NEGATIVE); Nitrite Urine UA NEGATIVE (Negative); Occult Blood Urine UA 3+ (Negative); Protein Urine UA 1+ (Negative)
[2024-12-09 09:16] LABS: Add Manual Diff / Slide Review NO
[2024-12-09 09:18] LABS: pH Urine UA 7.5 (4.5-8.0)
[2024-12-09 09:23] LABS: RBC Urine 10-30/HPF (0-5/HPF); Urine Volume 10mL (spun); WBC Urine 10-30/HPF (0-5/HPF)
[2024-12-09 09:24] LABS: Bacteria Urine Occasional (0-1); Culture Indicated Urine Specimen Cultured; Squamous Epithelial Cell Urine 1-5 /HPF (0-5/HPF)
[2024-12-09] MEDS: HYDRALAZINE 20 MG/ML VIAL 10 MG IV (09:47)
--- NOTE | 2024-12-09 10:19 | DI.RAD.S_ITS ---
PROCEDURE: XR CHEST 1V INDICATIONS: Chest pain TECHNIQUE: One view of the chest was acquired. COMPARISON: None. FINDINGS: Surgical changes and devices: None. Lungs and pleura: Increased bronchovascular markings in bilateral hilar region are seen with mild bronchial wall thickening. No definite focal infiltrate. No pleural effusions or pneumothorax. Mediastinum: Mediastinal contours appear normal. Heart size is normal. Bones and chest wall: No suspicious bony lesions. Overlying soft tissues appear unremarkable. IMPRESSION: Suggestion of reactive airway disease such as bronchiolitis or viral illness. No definite focal infiltrate. No pleural effusion or pneumothorax. Dictated by: Luther Ragland M.D. on 12/09/2024 at 10:31 Approved by: Luther Ragland M.D. on 12/09/2024 at 10:32
--- NOTE | 2024-12-09 10:32 | DI.CT.S_ITS ---
PROCEDURE: CT ANGIO CHEST PE PROTOCOL INDICATIONS: SOB TECHNIQUE: After the administration of intravenous contrast, 2 mm thick sections acquired from the pulmonary apices to the posterior costophrenic angles. 3-dimensional maximum intensity projection (MIP) coronal and sagittal reformats were then acquired through the thorax. For radiation dose reduction, the following was used: automated exposure control, adjustment of mA and/or kV according to patient size. COMPARISON: [facility], CR, XR CHEST 1V, 12/09/2024, 10:15. FINDINGS: Image quality: Diagnostic Lungs and pleura: Moderate diffuse septal thickening. Bibasilar mild opacities and atelectasis. Mkfu-ux-fokiuqzx bilateral effusions. Mediastinum, heart, and esophagus: No acute pulmonary embolism is seen. No pathologic lymph nodes by size criteria. Heart size is at the upper limit of normal. Anterior mediastinal tissue indeterminate but likely thymic remnant. Chest wall and thyroid: Unremarkable Upper abdomen: No gross abnormality on these arterial phase images. Bones: No aggressive appearing osseous abnormality. IMPRESSION: No acute pulmonary embolism identified. [id number] bilateral effusions and moderate septal thickening, likely representing edema. Bibasilar opacities, possibly mild airspace disease and atelectasis. Consider future imaging surveillance to assess for resolution. Dictated by: Dale Browning M.D. on 12/09/2024 at 11:14 Approved by: Dale Browning M.D. on 12/09/2024 at 11:18
--- NOTE | 2024-12-09 10:33 | P.HP_ITS ---
History of Present Illness History of Present Illness Date Patient Seen: 12/09/24 Time Patient Seen: 10:33 Chief complaint: Labored breathing [facility] Medical History (Updated 02/22/25 @ 12:57 by Thalia Rebolledo MD) Allergies Shoulder pain (~2017) Chlamydia (~2015) Eczema Concussion (~1997) Incompetent cervix Gestational hypertension Surgical History (Updated 08/05/24 @ 00:01 by ) Anesthesia History of cervical cerclage (~08/2021) H/O tooth extraction (~2012) Family History (Updated 05/24/24 @ 20:38 by Jamilah Johnson) Father Hypertension Mother Fnbeb-Qlqqgnbso-Uwfcn (WPW) syndrome SVT (supraventricular tachycardia) Twin delivered Grandmother Cervical cancer Grandmother Thyroid cancer Grandfather AIDS Grandfather Multiple sclerosis Social History marital status: number of children: 1 household members: spouse and children lives independently: Yes caregiver/support person: Yes housing: house pets and animals: Yes (small dogs, gecko) education level: college occupational status: employed current occupational exposures/hazards: No (not since becoming ) special carlo needs: No travel history: recent seatbelt use: always helmet use: Yes water heater temp set < 120 deg: Yes working smoke detector in home: Yes fire extinguisher in home: Yes carbon monox detector in home: Yes firearms in home: Yes firearms unloaded and locked: Yes do you feel safe at home: Yes second hand exposure: No alcohol intake: former substance use type: does not use during the past year weight has: decreased > 10 lbs well-balanced diet: about half the time daily servings fruits/ve-4 caffeine: Yes (occasional cup coffee ) Type(s) of exercise: walking, aerobic and bicycling Meds Home Medications and Allergies Home Medications ?Medication ?Instructions ?Recorded ?Confirmed ?Type vit no.95-ferrous 1 tab PO DAILY 05/06/24 History fumarate 28 mg-folic acid 800 mcg tablet ( Multivitamins) ibuprofen 600 mg tablet (IBU) 600 mg PO TID PRN pain # 60 tabs 12/05/24 01/21/25 Rx labetalol 200 mg tablet 200 mg PO TID #60 tabs 12/1002/06/25 Rx Allergies Allergy/AdvReac Type Severity Reaction Status Date / Time apple Allergy Intermediate Hives Verified 02/06/25 06:50 Exam Vital Signs (past 8 hours): - 12/09/24 08:15 12/09/24 08:25 12/09/24 08:26 Temperature 98.9 F Pulse Rate 104 H 104 H 104 H Respiratory Rate 18 Blood Pressure 182/78 H Pulse Oximetry 97 99 97 Oxygen Delivery Method Room Air 12/09/24 08:26 12/09/24 08:30 12/09/24 08:30 Temperature Pulse Rate 106 H Respiratory Rate Blood Pressure 182/101 H 187/107 H Pulse Oximetry 98 Oxygen Delivery Method 12/09/24 09:00 12/09/24 09:00 12/09/24 09:07 Temperature Pulse Rate 100 H 106 H Respiratory Rate Blood Pressure 197/91 H Pulse Oximetry 98 98 Oxygen Delivery Method 12/09/24 09:07 12/09/24 09:30 12/09/24 09:31 Temperature Pulse Rate 84 99 H Respiratory Rate Blood Pressure 184/86 H Pulse Oximetry 94 97 Oxygen Delivery Method 12/09/24 09:31 12/09/24 09:34 12/09/24 09:34 Temperature Pulse Rate 101 H Respiratory Rate Blood Pressure 221/98 H 181/83 H Pulse Oximetry 97 Oxygen Delivery Method 12/09/24 09:47 12/09/24 10:00 12/09/24 10:00 Temperature Pulse Rate 100 H 101 H Respiratory Rate 13 Blood Pressure 181/83 H 164/74 H Pulse Oximetry 98 Oxygen Delivery Method Oxygen Delivery Method Room Air Objective Labs 12/10/24 06:05 12/10/24 06:05 Labs: Laboratory Results - last 24 hr 12/09/24 12/09/24 08:50 09:09 WBC 16.0 H RBC 3.31 L Hgb 9.1 L Hct 27.5 L MCV 83.1 MCH 27.6 MCHC 33.2 RDW 13.9 Plt Count 649 H Neut % (Auto) 79.0 H Lymph % (Auto) 9.9 L [place] % (Auto) 8.0 Eos % (Auto) 2.3 Baso % (Auto) 0.8 Neut # (Auto) 25235 H Lymph # (Auto) 1600 [place] # (Auto) 1300 H Eos # (Auto) 400 Baso # (Auto) 100 PT 13.3 H INR 1.2 APTT 31 Sodium 137 Potassium 4.2 Chloride 107 Carbon Dioxide 19 L BUN 7 Creatinine 0.57 Estimated GFR > 60 BUN/Creatinine Ratio 12.3 Glucose 97 Calcium 9.3 Total Bilirubin 0.6 AST 31 ALT 26 Alkaline Phosphatase 141 H Total Protein 7.9 Albumin 3.7 Globulin 4.2 H Albumin/Globulin Ratio 0.9 L Urine Color Yellow Urine Appearance Sl cloudy Urine pH 7.5 Ur Specific [place] 1.020 Urine Protein 1+ H Urine Glucose (UA) Negative Urine Ketones Negative Urine Occult Blood 3+ H Urine Nitrate Negative Urine Bilirubin Negative Urine Urobilinogen 1.0 Ur Leukocyte Esterase 1+ H Urine RBC 10-30/hpf H Urine WBC 10-30/hpf H Ur Squamous Epith Cells 1-5 /hpf Urine Bacteria Occasional (0-1) Ur Culture Indicated? Specimen cultured Vol Urine Centrifuged 10ml (spun) Assessment & Plan Time-Based Coding :: [TOTAL MINUTES] spent with patient and on the chart (including review of chart, obtaining history, exam, reviewing outside data, placing orders, documenting exam and treatment plan, and counseling patient) on [DATE]. [employer] Document charge(s): No
[2024-12-09] MEDS: NIFEdipine 30 MG TAB ER PO (10:43)
[2024-12-09] MEDS: ACETAMINOPHEN 325 MG TABLET 650 MG PO ×2 (15:01→20:59)
[2024-12-09] MEDS: FUROSEMIDE 20 MG/2 ML VIAL IV (15:02)
--- NOTE | 2024-12-09 17:26 | PC.NURSE ---
4175- Dr. Rebolledo at the bedside with this RN. POC discussed, pt verbalized understanding. Resting in bed.
[2024-12-09 21:34] LABS: BUN Creatinine Ratio 9.1 (6-22); Blood Urea Nitrogen 6 mg/dL (7-17); Calcium 9.5 mg/dL (8.4-10.2); Carbon Dioxide 22 mmol/L (22-32); Chloride 106 mmol/L (98-107); Estimated Glomerular Filt Rate > 60 mL/min (>60); Glucose 117 mg/dL (70-100); HEMOLYSIS < 15 (0-50); Potassium 3.4 mmol/L (3.4-5.1); Sodium 141 mmol/L (137-145)
--- NOTE | 2024-12-09 21:45 | PC.NURSE ---
Dr. Rebolledo called, reported on pt assessment, recent vital signs and lab results. Order for a CBC/CMP on 12/10 at 0600.
[2024-12-10] VITALS (7 sets, daily range): BP systolic 125–141; BP diastolic 71–84; PULSE 70–98; RESP 16–92; TEMP 36.6–37.3; O2SAT 97–99
[2024-12-10] MEDS: ACETAMINOPHEN 325 MG TABLET 650 MG PO (04:13)
[2024-12-10] MEDS: IBUPROFEN 600 MG TABLET PO (06:10)
[2024-12-10 06:45] LABS: Add Manual Diff / Slide Review NO; Basophils Absolute Auto 0 /uL (0-100); Basophils Percent Auto 0.2 % (0-2); Eosinophils Absolute Auto 400 /uL (0-450); Eosinophils Percent Auto 3.3 % (2-4); Hematocrit 26.3 % (36-46); Hemoglobin 8.6 g/dL (12.0-16.0); Lymphocytes Absolute Auto 2600 /uL (1100-4500); Lymphocytes Percent Auto 22.7 % (25-40); Mean Corpuscular HGB Conc 32.7 % (30-36); Mean Corpuscular Hemoglobin 27.1 PG (26-34); Mean Corpuscular Volume 82.8 fL (80-100); Monocytes Absolute Auto 1300 /uL (0-900); Monocytes Percent Auto 11.4 % (3-14); Neutrophils Absolute Auto 7100 /uL (1500-7000); Neutrophils Percent Auto 62.4 % (50-75); Platelet Count 665 X10^3/uL (150-400); Red Blood Cell Count 3.18 X10^6/uL (4.0-5.2); Red Cell Distribution Width 13.7 % (11.6-14.8); White Blood Cell Count 11.4 X10^3/uL (4.5-11.0)
[2024-12-10 06:49] LABS: Alanine Aminotransferase 22 IU/L (<35); Albumin 3.5 g/dL (3.5-5.0); Albumin Globulin Ratio 0.9 (1.0-2.8); Alkaline Phosphatase 120 U/L (38-126); Aspartate Aminotransferase 31 IU/L (14-36); BUN Creatinine Ratio 10.9 (6-22); Bilirubin Total 0.4 mg/dL (0.2-1.3); Blood Urea Nitrogen 6 mg/dL (7-17); Carbon Dioxide 22 mmol/L (22-32); Chloride 106 mmol/L (98-107); Estimated Glomerular Filt Rate > 60 mL/min (>60); Globulin 3.8 g/dL (1.7-4.1); Glucose 99 mg/dL (70-100); HEMOLYSIS < 15 (0-50); Potassium 3.5 mmol/L (3.4-5.1); Sodium 138 mmol/L (137-145); Total Protein 7.3 g/dL (6.3-8.2)
[2024-12-10] MEDS: LABETALOL 100 MG TABLET 200 MG PO (08:48)
[2024-12-10] MEDS: NIFEdipine 30 MG TAB ER PO (08:49)
[2024-12-10] MEDS: DOCUSATE 100 MG CAPSULE 200 MG PO (08:50)
--- NOTE | 2024-12-10 10:15 | PC.NURSE ---
09:20 Provider at bedside, this RN present, D/C instruction discussed, provider Kesha sent prescriptions to pt. pharmacy, pt. agreed to medication POC, is aware of s/s to report to provider, pt. and significant other agreeable to plan and verbalize feeling safe going home. Denied any other questions or concerns. Pt. spouse will drop off older daughter and return to take pt. home.
== END 2024-12-10 11:45 | disposition home or self-care (01) ==
LOC: ED 08:28 → AC 10:05 → LABOR 11:08
PROVIDERS: Obstetrics & Gynecology; Admitting Provider Student in an Organized Health Care Education/Training Program; Emergency Provider Emergency Medicine; Referring Provider Emergency Medicine; Visit Provider Student in an Organized Health Care Education/Training Program
DX: R06.02 Shortness of breath (principal); O14.95 Unspecified pre-eclampsia, complicating the puerperium
CPT/HCPCS: 36415; 71045; 71275; 80048; 80053; 81001; 85025; 85610; 85730; 87086; 93005; 96374; 96375; 99284; G0378; J0360; J1940; Q9967

== ENCOUNTER 2025-02-06 06:37 | Day surgery (SDC) | payer OTHER, SELFPAY ==
[2025-01-29 13:35] VITALS: BMI 38.7
[2025-02-06 06:52] VITALS: BMI 38.7
[2025-02-06 06:58] VITALS: BP 148/91; PULSE 78; RESP 16; TEMP 36.1; O2SAT 100
[2025-02-06] MEDS: LACTATED RINGERS 1,000 ML 42 ML IV (07:09)
--- NOTE | 2025-02-06 07:25 | PM.GYNHP.1 ---
History of Present Illness History of Present Illness Narrative: Niharika Cooper is a 29 year old female 2 para 1102 who presents to have a piece of a cervical cerclage removed. Patient had a cerclage in place due to an incompetent cervix. She had the cerclage removed at 36 weeks gestation. At her 6 week visit there was a piece visible. An attempt was made to remove it in the office but it was very uncomfortable for the patient. [facility] Medical History (Updated 01/21/25 @ 10:43 by Thalia Rebolledo MD) Allergies Shoulder pain (~2017) Chlamydia (~2015) Eczema Concussion (~1997) Incompetent cervix Gestational hypertension Surgical History (Updated 08/05/24 @ 00:01 by ) Anesthesia History of cervical cerclage (~08/2021) H/O tooth extraction (~2012) Family History (Updated 05/24/24 @ 20:38 by Jamilah Johnson) Father Hypertension Mother [id number]-[id number]-Jlekv (WPW) syndrome SVT (supraventricular tachycardia) Twin delivered Grandmother Cervical cancer Grandmother Thyroid cancer Grandfather AIDS Grandfather Multiple sclerosis Social History marital status: number of children: 1 household members: spouse and children lives independently: Yes caregiver/support person: Yes housing: house pets and animals: Yes (small dogs, gecko) education level: college occupational status: employed current occupational exposures/hazards: No (not since becoming ) special carlo needs: No travel history: recent seatbelt use: always helmet use: Yes water heater temp set < 120 deg: Yes working smoke detector in home: Yes fire extinguisher in home: Yes carbon monox detector in home: Yes firearms in home: Yes firearms unloaded and locked: Yes do you feel safe at home: Yes Smoking Status: Never smoker second hand exposure: No alcohol intake: former substance use type: does not use during the past year weight has: decreased > 10 lbs well-balanced diet: about half the time daily servings fruits/ve-4 caffeine: Yes (occasional cup coffee ) Type(s) of exercise: walking, aerobic and bicycling Meds Home Medications and Allergies Home Medications Medication Instructions Recorded Confirmed Type vit no.95-ferrous 1 tab PO DAILY 05/06/24 01/21/25 History fumarate 28 mg-folic acid 800 mcg tablet ( Multivitamins) docusate sodium 100 mg capsule 200 mg (2 x 100 mg) PO DAILY #30 12/05/24 01/21/25 Rx (Colace) caps ibuprofen 600 mg tablet (IBU) 600 mg PO TID PRN pain #60 tabs 12/05/24 01/21/25 Rx labetalol 200 mg tablet 200 mg PO TID #60 tabs 12/10/24 02/06/25 Rx Allergies Allergy/AdvReac Type Severity Reaction Status Date / Time apple Allergy Intermediate Hives Verified 02/06/25 06:50 Exam Vital Signs (past 8 hours): - 02/06/25 06:58 Temperature 96.9 F L Pulse Rate 78 Respiratory Rate 16 Blood Pressure 148/91 H Pulse Oximetry 100 Oxygen Delivery Method Room Air Oxygen Delivery Method Room Air Narrative Exam Narrative: HEENT: No thyromegaly, no anterior cervical or supraclavicular lymphadenopathy. Lungs:Clear to auscultation bilaterally, no wheezes. Cardiovascular: Regular rate and rhythm, no murmurs, rubs, or gallops. Abdomen: No scars. No hepatosplenomegaly. No masses palpable. External genitalia: Normal Vagina: Normal Cervix: Normal Bimanual exam: 6 Week size anteverted uterus. Mobile. Extremities: No edema Assessment & Plan Assessment & Plan narrative: Assessment: A 29-year-old 2 para 1102 with a piece of a cerclage stuck in the cervix Plan: Removal of piece of the cerclage The risks, benefits, and alternatives to the procedure were explained to the patient. The risks including bleeding and infection. She understands these risks and agrees to proceed. A full par Q was held and consent form was signed. Time-Based Coding :: [TOTAL MINUTES] spent with patient and on the chart (including review of chart, obtaining history, exam, reviewing outside data, placing orders, documenting exam and treatment plan, and counseling patient) on [DATE].
--- NOTE | 2025-02-06 07:27 | PM.PREOP ---
Pre-operative Note Interval Note History & Physical reviewed/Exam performed by Physician: Yes Changes to H&P: No H&P completed within 30 days and has changed as indicated here:: 02/06/25
[2025-02-06] MEDS: CEFAZOLIN 2 GM/100 ML PREMIX 100 ML IV (07:48)
[2025-02-06] MEDS: BUPIVACAINE 0.25% W/ EPI (PF) 10 ML VIAL 20 ML INJ (07:55)
--- NOTE | 2025-02-06 07:59 | PM.GYNOP.1 ---
Operative Date/Time/Diagnoses Date of procedure: 02/06/25 Time of procedure: 08:00 Pre-op diagnosis: Piece of Cerclage embedded in cervix Post-op diagnosis: same Procedure & Clinicians Procedure: Procedures Operation Date: 02/06/25 07:45 Actual Procedure Side Surgeon sugey Cervical Circlage piece removal Thalia Rebolledo MD Indications: 29 year old who had a cerclage for her . Removed at 36 weeks. At visit, piece of Cerclage embedded in the cervix. Attempted to remove it in the office, but patient unable to tolerate. Surgeon: Thalia Rebolledo Anesthesia Type: General (LMA) and Local Operative Notes Findings: 2cm piece of cerclage stuck at 1 o'clock position Closure Type: not applicable Specimen(s): none Estimated blood loss (mL): 3 Blood products transfused: none Procedure in detail: After informed consent was obtained, the patient was taken to the operating room and placed in the dorsal supine position. LMA general anesthesia was obtained. The patient was then placed in the dorsal lithotomy position and prepped and draped in the usual sterile fashion. A timeout was performed. A bivalve speculum was placed into the vagina. A single tooth tenaculum was placed on the anterior lip of the cervix. 10cc of 1% lidocaine were injected at 2, 4, 8 and 10 o'clock position. A 2cm piece of cerclage was viisble at the 1 o'clock position. This was grasped with a polyp forcep and removed without difficulty. There was granulation tissue at 12 and 1 o'clock. This was removed and then the area was cauterized. Hemostatis was achieved. The single tooth tenaculum was removed. The bivalve speculum was removed. The patient tolerated the procedure well and was taken to PACU in stable condition. Complications: none Post-operative Condition: stable Disposition: PACU Plan for aftercare: Home after recovery
--- NOTE | 2025-02-06 08:02 | SUR.OPER ---
Lithotomy on padded OR bed, head on pillow, arms secured on padded arm boards at <90 degrees abduction. Legs secured in padded yellow fins stirrups.
[2025-02-06 08:07] VITALS: BP 150/86; PULSE 83; RESP 16; TEMP 36.2; O2SAT 98
[2025-02-06 08:12] VITALS: BP 150/86; PULSE 76; RESP 16; O2SAT 100
[2025-02-06 08:20] VITALS: BP 141/85; PULSE 72; RESP 16; O2SAT 98
[2025-02-06 08:25] VITALS: PULSE 72; RESP 16; TEMP 36.2; O2SAT 98
[2025-02-06] MEDS: ACETAMINOPHEN IV 1,000 MG/100 ML VIAL 400 MG IV (08:36)
[2025-02-06 08:37] VITALS: BP 134/74; PULSE 72; RESP 16; TEMP 36.2; O2SAT 98
== END 2025-02-06 08:50 | disposition home or self-care (01) ==
PROVIDERS: Referring Provider Obstetrics & Gynecology; Visit Provider Obstetrics & Gynecology
PROC: 0UVC7ZZ Restriction of Cervix, Via Natural or Artificial Opening (ICD-10-PCS; CPT 57700; principal; 2025-02-06 07:45)
DX: Z18.89 Other specified retained foreign body fragments (principal)
CPT/HCPCS: 59871; J0131; J0690; J1100; J1885; J2405; J2704; J3010